=== PATIENT | female | born 1975 | race Caucasian/White ===

== ENCOUNTER 2017-03-03 01:35 | Emergency (ER) | payer BC ==
[2017-03-03] MEDS ORDERED: Diltiazem 25 MG/5 ML SDV IVPUSH ONE (01:55)
[2017-03-03] MEDS ORDERED: Diltiazem 100 MG in Sodium Chloride 0.9% 100 ML IV SCH (02:15)
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
[2017-03-03] MEDS ORDERED: Propofol 200 MG/20 ML SDV IVPUSH ONE (02:53)
[2017-03-03 04:38] VITALS: BP 126/81
== END 2017-03-03 03:45 | disposition home or self-care (01) ==
LOC: JP.ED 01:35
DX: I48.91 Unspecified atrial fibrillation (principal); F31.9 Bipolar disorder, unspecified; Z98.51 Tubal ligation status; Z98.890 Other specified postprocedural states; Z79.899 Other long term (current) drug therapy; Z88.2 Allergy status to sulfonamides; Z88.8 Allergy status to other drugs, medicaments and biological substances
CPT/HCPCS: 36415; 80048; 84484; 85025; 93005; 96374; 96375; 99285; J2704; J7030; J3490

== ENCOUNTER 2017-09-03 21:21 | Emergency (ER) | payer BC | END 2017-09-03 21:55 | disposition left against medical advice (07) | LOC: JP.ED 21:21 | DX: Z53.21 Procedure and treatment not carried out due to patient leaving prior to being seen by health care provider (principal) ==

== ENCOUNTER 2018-02-12 10:40 | Inpatient (IN) | payer BC ==
[2018-02-12] MEDS ORDERED: HYDROmorphone/Normal Saline 15 MG/30 ML PCA IV PRN ×2 (12:00→15:32)
[2018-02-12] MEDS ORDERED: Naloxone 0.4 MG/ML SDV IV PRN (12:07)
[2018-02-12] MEDS: Dextrose 5%-0.9% NaCl 1,000 ML IV SCH ×2 (12:08→22:30)
[2018-02-12] MEDS ORDERED: cefTRIAXone 2 GM in Sodium Chloride 0.9% 50 ML IV ONE (12:30)
[2018-02-12] MEDS ORDERED: Levofloxacin/Dextrose 5%-Water 750 MG in Premix Bag 1 BAG IV ONE (13:00)
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
[2018-02-12] MEDS: Acetaminophen 325 MG Tab PO PRN ×2 (15:36→22:26)
[2018-02-12] MEDS: Ondansetron 4 MG Tab.DIS PO PRN ×2 (16:18→20:51)
[2018-02-12] MEDS ORDERED: Cyclobenzaprine 10 MG Tab PO PRN (23:35)
[2018-02-12] MEDS ORDERED: QUEtiapine 25 MG Tab ONE (23:59)
[2018-02-13] MEDS: QUEtiapine 25 MG Tab PO SCH ×2 (00:01→21:03)
[2018-02-13] MEDS: Acetaminophen 325 MG Tab PO PRN ×3 (04:47→19:15)
[2018-02-13] MEDS: Ondansetron 4 MG Tab.DIS PO PRN ×3 (05:36→18:34)
[2018-02-13] MEDS: Dextrose 5%-0.9% NaCl 1,000 ML IV SCH (06:29)
[2018-02-13] MEDS: cefTRIAXone 2 GM in Sodium Chloride 0.9% 50 ML IV SCH (13:18)
--- NOTE | 2018-02-13 14:27 | PCM.PN ---
- General Info Date of Service: 02/13/18 Functional Status: Reports: Pain Controlled - Review of Systems General: Reports: Weakness, Fatigue HEENT: Reports: No Symptoms Pulmonary: Reports: No Symptoms Cardiovascular: Reports: No Symptoms Gastrointestinal: Reports: No Symptoms Genitourinary: Reports: No Symptoms Musculoskeletal: Reports: No Symptoms Skin: Reports: No Symptoms Neurological: Reports: No Symptoms Psychiatric: Reports: No Symptoms - Patient Data Vitals - Most Recent: Last Vital Signs Temp 96.5 F 02/13/18 11:09 Pulse 78 02/13/18 11:09 Resp 16 02/13/18 11:09 BP 130/86 02/13/18 11:09 Pulse Ox 99 02/13/18 11:09 Weight - Most Recent: 102 lb I&O - Last 24 Hours: Intake & Output 02/12/18 02/13/18 02/13/18 22:59 06:59 14:59 Intake Total 664 2300 Balance 664 2300 Zain Results Last 24 Hours: Microbiology 02/12/18 12:54 Urine Culture - Preliminary Urine, Clean Catch NO GROWTH AFTER 1 DAY Med Orders - Current: Current Medications Acetaminophen (Tylenol) 325 - 650 mg PO Q4H PRN PRN Reason: Pain Last Admin: 02/13/18 09:53 Dose: 650 mg Cyclobenzaprine HCl (Flexeril) 10 mg PO BEDTIME PRN PRN Reason: pain Hydromorphone HCl (Dilaudid Maintenance Carpenter 15 Mg In Ns 30 Ml) 0 mg IV ASDIRECTED PRN; Protocol PRN Reason: Pain Dextrose/Sodium Chloride (Dextrose 5%-Normal Saline) 1,000 mls @ 125 mls/hr IV ASDIRECTED AMALIA Last Admin: 02/13/18 06:29 Dose: 125 mls/hr Ceftriaxone Sodium 2 gm/ (Sodium Chloride) 50 mls @ 100 mls/hr IV Q24H [facility] Last Admin: 02/13/18 13:18 Dose: 100 mls/hr Levofloxacin/Dextrose 750 mg/ (Premix) 150 mls @ 100 mls/hr IV Q24H [facility] Naloxone HCl (Narcan) 0.1 mg IV ASDIRECTED PRN PRN Reason: decreased respiratory rate Ondansetron HCl (Zofran Odt) 4 mg PO Q4H PRN PRN Reason: Nausea/Vomiting Last Admin: 02/13/18 14:07 Dose: 4 mg Quetiapine Fumarate (Seroquel) 37.5 mg PO BEDTIME AMALIA Last Admin: 02/13/18 00:01 Dose: 37.5 mg Discontinued Medications Hydromorphone HCl (Dilaudid Maintenance Carpenter 15 Mg In Ns 30 Ml) 0 mg IV ASDIRECTED PRN; Protocol PRN Reason: Pain Last Admin: 02/12/18 12:12 Dose: 15 mg Ceftriaxone Sodium 2 gm/ (Sodium Chloride) 50 mls @ 100 mls/hr IV ONETIME ONE Stop: 02/12/18 12:59 Last Admin: 02/12/18 12:47 Dose: 100 mls/hr Levofloxacin/Dextrose 750 mg/ (Premix) 150 mls @ 100 mls/hr IV ONETIME ONE Stop: 02/12/18 14:29 Last Admin: 02/12/18 13:41 Dose: 100 mls/hr Quetiapine Fumarate (Seroquel) Confirm Administered Dose 50 mg .ROUTE .STK-MED ONE Stop: 02/13/18 00:00 Last Admin: 02/13/18 00:02 Dose: Not Given - Exam General: Alert, Oriented Neck: Supple Lungs: Clear to Auscultation, Normal Respiratory Effort Cardiovascular: Regular Rate, Regular Rhythm GI/Abdominal Exam: Normal Bowel Sounds, Tender, Other (Pain over the eft kidney) Back Exam: Normal Inspection, Full Range of Motion Peripheral Pulses: 1+: Radial (L), Radial (R) Skin: Warm, Dry, Intact Neurological: No New Focal Deficit Psy/Mental Status: Alert, Normal Affect, Normal Mood - Problem List Review Problem List Initiated/Reviewed/Updated: Yes - My Orders Last 24 Hours: My Active Orders 02/12/18 15:04 Acetaminophen [Tylenol] 325 - 650 mg PO Q4H PRN 02/12/18 15:28 Communication Order [RC] QSHIFT 02/12/18 15:32 HYDROmorphone/Normal Saline [Dilaudid AGRONOMY ADVISOR 15 MG in NS 30 ML] 0 mg IV ASDIRECTED PRN 02/12/18 15:44 Ondansetron [Zofran ODT] 4 mg PO Q4H PRN 02/12/18 23:35 Cyclobenzaprine [Flexeril] 10 mg PO BEDTIME PRN 03/29/18 Dinner Regular Diet [DIET] 02/13/18 08:01 SCD [Sequential Compression Device] [OM.PC] Routine 02/13/18 13:00 cefTRIAXone [Rocephin] 2 gm Sodium Chloride 0.9% [Normal Saline] 50 ml IV Q24H 02/13/18 14:00 Levofloxacin/Dextrose 5%-Water [Levaquin in D5W 750 MG/150 ML] 750 mg Premix Bag 1 bag IV Q24H 02/13/18 21:00 QUEtiapine [SEROquel] 37.5 mg PO BEDTIME - Plan Plan:: Assessment/Plan: #1. Acute Pylonephritis: Have started her on Rocephin and Levaquin. Will continue pain meds to control the pain. Culture report pending. #2. Migraine headaches.
[2018-02-13] MEDS: Levofloxacin/Dextrose 5%-Water 750 MG in Premix Bag 1 BAG IV SCH (14:55)
[2018-02-13] MEDS: oxyCODONE 5 MG Tab PO PRN ×2 (18:34→22:27)
[2018-02-14] MEDS: oxyCODONE 5 MG Tab PO PRN ×3 (02:49→13:33)
[2018-02-14] MEDS: Ondansetron 4 MG Tab.DIS PO PRN (13:33)
[2018-02-14] MEDS: cefTRIAXone 2 GM in Sodium Chloride 0.9% 50 ML IV SCH (13:57)
[2018-02-14 14:12] VITALS: BP 155/107
--- NOTE | 2018-02-14 14:28 | PCM.PN ---
- General Info Date of Service: 02/14/18 Subjective Update: She is feeling better. Her pain has improved but still needed meds to control the pain. Functional Status: Reports: Pain Controlled - Review of Systems General: Reports: Weakness HEENT: Reports: No Symptoms Pulmonary: Reports: No Symptoms Cardiovascular: Reports: No Symptoms Gastrointestinal: Reports: No Symptoms Genitourinary: Reports: Flank Pain, Other (Pain over the lift kidney) Musculoskeletal: Reports: No Symptoms Skin: Reports: No Symptoms Neurological: Reports: No Symptoms Psychiatric: Reports: No Symptoms - Patient Data Vitals - Most Recent: Last Vital Signs Temp 98.1 F 02/14/18 14:07 Pulse 84 02/14/18 14:07 Resp 16 02/14/18 14:07 BP 155/107 H 02/14/18 14:07 Pulse Ox 100 02/14/18 14:07 Weight - Most Recent: 102 lb I&O - Last 24 Hours: Intake & Output 02/13/18 02/14/18 02/14/18 22:59 06:59 14:59 Intake Total 1879 740 970 Balance 1879 740 970 Zain Results Last 24 Hours: Microbiology 02/12/18 12:54 Urine Culture - Final Urine, Clean Catch MIXED KAILEY DAY 2 Med Orders - Current: Current Medications Acetaminophen (Tylenol) 325 - 650 mg PO Q4H PRN PRN Reason: Pain Last Admin: 02/13/18 19:15 Dose: 650 mg Cyclobenzaprine HCl (Flexeril) 10 mg PO BEDTIME PRN PRN Reason: pain Ceftriaxone Sodium 2 gm/ (Sodium Chloride) 50 mls @ 100 mls/hr IV Q24H [facility] Last Admin: 02/14/18 13:57 Dose: 100 mls/hr Levofloxacin/Dextrose 750 mg/ (Premix) 150 mls @ 100 mls/hr IV Q24H [facility] Last Admin: 02/13/18 14:55 Dose: 100 mls/hr Ondansetron HCl (Zofran Odt) 4 mg PO Q4H PRN PRN Reason: Nausea/Vomiting Last Admin: 02/14/18 13:33 Dose: 4 mg Oxycodone HCl (Oxycodone) 5 mg PO Q4H PRN PRN Reason: Abdominal Pain Last Admin: 02/14/18 13:33 Dose: 5 mg Quetiapine Fumarate (Seroquel) 37.5 mg PO BEDTIME [facility] Last Admin: 02/13/18 21:03 Dose: 37.5 mg Discontinued Medications Hydromorphone HCl (Dilaudid Public Health Sanitarian Technician 15 Mg In Ns 30 Ml) 0 mg IV ASDIRECTED PRN; Protocol PRN Reason: Pain Last Admin: 02/12/18 12:12 Dose: 15 mg Hydromorphone HCl (Dilaudid Public Health Sanitarian Technician 15 Mg In Ns 30 Ml) 0 mg IV ASDIRECTED PRN; Protocol PRN Reason: Pain Ceftriaxone Sodium 2 gm/ (Sodium Chloride) 50 mls @ 100 mls/hr IV ONETIME ONE Stop: 02/12/18 12:59 Last Admin: 02/12/18 12:47 Dose: 100 mls/hr Dextrose/Sodium Chloride (Dextrose 5%-Normal Saline) 1,000 mls @ 125 mls/hr IV ASDIRECTED [facility] Last Admin: 02/13/18 06:29 Dose: 125 mls/hr Levofloxacin/Dextrose 750 mg/ (Premix) 150 mls @ 100 mls/hr IV ONETIME ONE Stop: 02/12/18 14:29 Last Admin: 02/12/18 13:41 Dose: 100 mls/hr Naloxone HCl (Narcan) 0.1 mg IV ASDIRECTED PRN PRN Reason: decreased respiratory rate Quetiapine Fumarate (Seroquel) Confirm Administered Dose 50 mg .ROUTE .STK-MED ONE Stop: 02/13/18 00:00 Last Admin: 02/13/18 00:02 Dose: Not Given - Exam General: Alert, Oriented HEENT: Pupils Equal, Pupils Reactive, EOMI, Mucous Membr. Moist/[place] Neck: Supple Lungs: Clear to Auscultation, Normal Respiratory Effort Cardiovascular: Regular Rate, Regular Rhythm GI/Abdominal Exam: Tender, Other (Pain to palpation over the left kidney and pain to CVA percussion left kidney area.) Extremities: Normal Inspection, Normal Range of Motion, Non-Tender, No Pedal Edema, Normal Capillary Refill Neurological: No New Focal Deficit Psy/Mental Status: Alert, Normal Affect, Normal Mood - Problem List Review Problem List Initiated/Reviewed/Updated: Yes - My Orders Last 24 Hours: My Active Orders 02/13/18 14:00 Levofloxacin/Dextrose 5%-Water [Levaquin in D5W 750 MG/150 ML] 750 mg Premix Bag 1 bag IV Q24H 02/13/18 17:42 oxyCODONE 5 mg PO Q4H PRN Convert IV to Saline Lock [OM.PC] Routine 02/13/18 21:00 QUEtiapine [SEROquel] 37.5 mg PO BEDTIME 02/14/18 14:28 Ready for Discharge [RC] PER UNIT ROUTINE - Plan Plan:: Assessment/Plan: #1. Acute Pylonephritis: Have started her on Rocephin and Levaquin. Will continue pain meds by mouth and discharge home on oxycodone PO. Culture report showed mixed kailey. Will send home of Cefadroxil and Levaquin. #2. Migraine headaches. Condition stable.
--- NOTE | 2018-02-14 14:29 | PCM.DCSUM1 ---
Discharge Summary - Hospital Course Brief History: She has a history of 2 episodes of kidney stones. The last one was on the left and had lithotripsy followed by stone removal on the left kidney. Following this she had bleeding and has had pain ever since recently increased pain in the left side of the abd. She had a CT urogram which showed evidence of nephritis. She came to the office having sever pain. She was admitted because of severe pain and to treat the nephritis of the left kidney. Her pain level was 8-9/10 sharp and dull and constant. - Discharge Data Discharge Date: 02/14/18 Discharge Disposition: Home, Self-Care 01 Condition: Good - Patient Summary/Data Hospital Course: She was given Rocephin and Levaquin and improved. Pain was controlled with Narcotics. First IV then PO Oxycondone 5 mg - Discharge Plan Home Medications: Home Meds Ondansetron [Zofran ODT] 4 mg PO Q6H PRN 07/05/14 [History] QUEtiapine [SEROquel] 75 mg PO BEDTIME 07/05/14 [History] Cyclobenzaprine [Flexeril] 1 tab PO BEDTIME PRN 05/20/16 [History] Ibuprofen 800 mg PO Q6H PRN 02/12/18 [History] Ketorolac Tromethamine 10 mg PO Q4HR PRN 02/12/18 [History] Ondansetron [Zofran ODT] 4 mg PO Q4H PRN tab.dis 02/14/18 [Rx] oxyCODONE 5 mg PO Q4H PRN tablet 02/14/18 [Rx] Patient Handouts: Levofloxacin injection, Ceftriaxone injection - Discharge Summary/Plan Comment Discharge Summary/Plan Comment: Assessment/Plan: #1. Acute Pylonephritis: Have started her on Rocephin and Levaquin. Will continue pain meds by mouth and discharge home on oxycodone PO. Culture report showed mixed jeniffer. Will send home of Cefadroxil and Levaquin. #2. Migraine headaches. Condition stable. Sent home on Oxycondone 5 mg QID prn #24, Cefadroxil 500 mg bid #42 and Levaquin 500 mg q day for 3 weeks - General Info Date of Service: 02/14/18 Functional Status: Reports: Pain Controlled - Review of Systems General: Reports: Weakness HEENT: Reports: No Symptoms Pulmonary: Reports: No Symptoms Cardiovascular: Reports: No Symptoms Gastrointestinal: Reports: No Symptoms Genitourinary: Reports: Frequency, Urgency Musculoskeletal: Reports: No Symptoms Skin: Reports: No Symptoms Psychiatric: Reports: No Symptoms - Patient Data Vitals - Most Recent: Last Vital Signs Temp 98.1 F 02/14/18 14:07 Pulse 84 02/14/18 14:07 Resp 16 02/14/18 14:07 BP 155/107 H 02/14/18 14:07 Pulse Ox 100 02/14/18 14:07 Weight - Most Recent: 102 lb I&O - Last 24 hours: Intake & Output 02/13/18 02/14/18 02/14/18 22:59 06:59 14:59 Intake Total 1879 740 970 Balance 1879 740 970 JOSE Results - Last 24 hrs: Microbiology 02/12/18 12:54 Urine Culture - Final Urine, Clean Catch MIXED JENIFFER DAY 2 Med Orders - Current: Current Medications Acetaminophen (Tylenol) 325 - 650 mg PO Q4H PRN PRN Reason: Pain Last Admin: 02/13/18 19:15 Dose: 650 mg Cyclobenzaprine HCl (Flexeril) 10 mg PO BEDTIME PRN PRN Reason: pain Ceftriaxone Sodium 2 gm/ (Sodium Chloride) 50 mls @ 100 mls/hr IV Q24H [facility] Last Admin: 02/14/18 13:57 Dose: 100 mls/hr Levofloxacin/Dextrose 750 mg/ (Premix) 150 mls @ 100 mls/hr IV Q24H [facility] Last Admin: 02/13/18 14:55 Dose: 100 mls/hr Ondansetron HCl (Zofran Odt) 4 mg PO Q4H PRN PRN Reason: Nausea/Vomiting Last Admin: 02/14/18 13:33 Dose: 4 mg Oxycodone HCl (Oxycodone) 5 mg PO Q4H PRN PRN Reason: Abdominal Pain Last Admin: 02/14/18 13:33 Dose: 5 mg Quetiapine Fumarate (Seroquel) 37.5 mg PO BEDTIME AMALIA Last Admin: 02/13/18 21:03 Dose: 37.5 mg Discontinued Medications Hydromorphone HCl (Dilaudid History Tutor 15 Mg In Ns 30 Ml) 0 mg IV ASDIRECTED PRN; Protocol PRN Reason: Pain Last Admin: 02/12/18 12:12 Dose: 15 mg Hydromorphone HCl (Dilaudid History Tutor 15 Mg In Ns 30 Ml) 0 mg IV ASDIRECTED PRN; Protocol PRN Reason: Pain Ceftriaxone Sodium 2 gm/ (Sodium Chloride) 50 mls @ 100 mls/hr IV ONETIME ONE Stop: 02/12/18 12:59 Last Admin: 02/12/18 12:47 Dose: 100 mls/hr Dextrose/Sodium Chloride (Dextrose 5%-Normal Saline) 1,000 mls @ 125 mls/hr IV ASDIRECTED AMALIA Last Admin: 02/13/18 06:29 Dose: 125 mls/hr Levofloxacin/Dextrose 750 mg/ (Premix) 150 mls @ 100 mls/hr IV ONETIME ONE Stop: 02/12/18 14:29 Last Admin: 02/12/18 13:41 Dose: 100 mls/hr Naloxone HCl (Narcan) 0.1 mg IV ASDIRECTED PRN PRN Reason: decreased respiratory rate Quetiapine Fumarate (Seroquel) Confirm Administered Dose 50 mg .ROUTE .STK-MED ONE Stop: 02/13/18 00:00 Last Admin: 02/13/18 00:02 Dose: Not Given - Exam General: Reports: Alert, Oriented HEENT: Reports: Pupils Equal, Pupils Reactive, EOMI, Mucous Membr. Moist/[place] Neck: Reports: Supple Lungs: Reports: Clear to Auscultation, Normal Respiratory Effort Cardiovascular: Reports: Regular Rate, Regular Rhythm GI/Abdominal Exam: Tender, Other (Pain to palpation over the left kidney area.) Back Exam: Reports: Full Range of Motion Extremities: Non-Tender
[2018-02-14] MEDS: Levofloxacin/Dextrose 5%-Water 750 MG in Premix Bag 1 BAG IV SCH (14:39)
== END 2018-02-14 16:43 | disposition home or self-care (01) | DRG 463 ==
LOC: JP.MS 10:40
PROVIDERS: ADMIT Internal Medicine; ATTEND Internal Medicine
DX: N10 Acute pyelonephritis (principal); G43.909 Migraine, unspecified, not intractable, without status migrainosus; Z88.2 Allergy status to sulfonamides; Z88.8 Allergy status to other drugs, medicaments and biological substances; Z79.899 Other long term (current) drug therapy; Z87.891 Personal history of nicotine dependence
CPT/HCPCS: 36415; 80053; 85025; 87086; A9270-GY; J0696; J1170; J1956; J7050

== ENCOUNTER 2018-02-27 14:44 | Emergency (ER) | payer BC ==
[2018-02-27] MEDS ORDERED: HYDROmorphone 0.5 MG/0.5 ML Syringe IVPUSH ONE (15:35)
[2018-02-27] MEDS ORDERED: Ondansetron 4 MG/2 ML SDV IVPUSH ONE (15:35)
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
[2018-02-27] MEDS ORDERED: Sodium Chloride 0.9% 1,000 ML IV SCH ×2 (15:45→18:15)
[2018-02-27] MEDS ORDERED: HYDROmorphone 1 MG/ML Syringe IVPUSH ONE (16:56)
[2018-02-27] MEDS ORDERED: LORazepam 2 MG/ML SDV IVPUSH ONE (17:01)
[2018-02-27] MEDS ORDERED: Nitroglycerin 0.4 MG Tab.SL SL ONE (17:02)
[2018-02-27] MEDS ORDERED: Iopamidol 612 MG/ML 100 ML Bottle IV SCH (18:30)
[2018-02-27 19:32] VITALS: BP 163/97
== END 2018-02-27 19:42 | disposition home or self-care (01) ==
LOC: JP.ED 14:44
DX: R10.9 Unspecified abdominal pain (principal); Z88.5 Allergy status to narcotic agent; Z88.2 Allergy status to sulfonamides; Z87.891 Personal history of nicotine dependence
CPT/HCPCS: 36415; 74177; 80053; 81001; 85025; 86140; 87086; 96361; 96374; 96375; 96376; 99284; J1170; J2405; J7030; J7040; Q9967

== ENCOUNTER 2018-03-02 08:47 | Emergency (ER) | payer BC ==
[2018-03-02 08:58] VITALS: BP 161/101
[2018-03-02] MEDS ORDERED: Sodium Chloride 0.9% 10 ML Syringe FLUSH PRN (09:25)
[2018-03-02] MEDS ORDERED: Ondansetron 4 MG/2 ML SDV IVPUSH ONE ×3 (09:26→11:06)
[2018-03-02] MEDS ORDERED: Ketorolac 30 MG/ML SDV IVPUSH ONE (09:26)
[2018-03-02] MEDS ORDERED: Sodium Chloride 0.9% 1,000 ML IV SCH (09:30)
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
[2018-03-02] MEDS ORDERED: HYDROmorphone 0.5 MG/0.5 ML Syringe IVPUSH ONE (10:05)
[2018-03-02] MEDS ORDERED: HYDROmorphone 1 MG/ML Syringe IVPUSH ONE (10:42)
== END 2018-03-02 11:20 | disposition home or self-care (01) ==
LOC: JP.ED 08:47
DX: R10.9 Unspecified abdominal pain (principal); Z88.2 Allergy status to sulfonamides; Z88.5 Allergy status to narcotic agent; Z87.891 Personal history of nicotine dependence
CPT/HCPCS: 80305; 81001; 96361; 96374; 96375; 96376; 99284; J1170; J1885; J2405; J7040; J7050

== ENCOUNTER 2018-03-18 12:58 | Emergency (ER) | payer BC ==
[2018-03-18] MEDS ORDERED: HYDROmorphone 1 MG/ML Syringe IVPUSH ONE (15:50)
[2018-03-18] MEDS ORDERED: Ondansetron 4 MG/2 ML SDV IVPUSH ONE (15:52)
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
[2018-03-18] MEDS ORDERED: Sodium Chloride 0.9% 1,000 ML IV SCH (16:00)
[2018-03-18 16:47] VITALS: BP 148/88
[2018-03-18] MEDS ORDERED: HYDROmorphone 0.5 MG/0.5 ML Syringe IVPUSH ONE (16:50)
--- NOTE | 2018-03-19 09:25 | CR ---
Abdomen Series w Chest 1V CLINICAL HISTORY: Severe left lower quadrant pain FINDINGS: The lungs are clear. No free air is identified. There are air-filled loops of small bowel w ithin a nonacute pattern. The there is some gas and feces in the colon. No definite urinary calcifica tions are seen. Patient has an S shaped scoliosis with the thoracic convexity to the left IMPRESSION: Nonacute intestinal gas pattern Scoliosis
== END 2018-03-18 19:21 | disposition home or self-care (01) ==
LOC: JP.ED 12:58
DX: K59.00 Constipation, unspecified (principal); I48.91 Unspecified atrial fibrillation; J45.909 Unspecified asthma, uncomplicated; Z88.2 Allergy status to sulfonamides; Z88.8 Allergy status to other drugs, medicaments and biological substances; Z79.899 Other long term (current) drug therapy; Z87.442 Personal history of urinary calculi; Z87.440 Personal history of urinary (tract) infections
CPT/HCPCS: 36415; 74022; 76830; 76857; 80053; 81001; 85025; 96361; 96374; 96375; 96376; 99285; J1170; J2405; J7040

== ENCOUNTER 2018-04-08 15:14 | Emergency (ER) | payer BC ==
[2018-04-08] MEDS ORDERED: Ondansetron 4 MG Tab.DIS PO ONE (17:08)
[2018-04-08] MEDS ORDERED: fentaNYL 100 MCG/2 ML SDV IM ONE (17:08)
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
[2018-04-08] MEDS ORDERED: HYDROmorphone 1 MG/ML Syringe IVPUSH ONE (17:16)
[2018-04-08] MEDS ORDERED: HYDROmorphone 1 MG/ML Syringe IM ONE (17:18)
[2018-04-08 17:43] VITALS: BP 154/104
[2018-04-08] MEDS ORDERED: Prochlorperazine 10 MG/2 ML SDV IVPUSH ONE (18:28)
== END 2018-04-08 18:41 | disposition home or self-care (01) ==
LOC: JP.ED 15:14
DX: R10.84 Generalized abdominal pain (principal); Z88.8 Allergy status to other drugs, medicaments and biological substances; Z88.5 Allergy status to narcotic agent; Z88.2 Allergy status to sulfonamides; Z88.0 Allergy status to penicillin
CPT/HCPCS: 36415; 80053; 81001; 81025; 83605; 83690; 85025; 96372; 96374; 99284; A9270; J1170

== ENCOUNTER 2018-04-19 18:41 | Emergency (ER) | payer BC ==
[2018-04-19] MEDS ORDERED: Lactated Ringers 1,000 ML IV ONE (19:12)
[2018-04-19] MEDS ORDERED: Ketorolac 30 MG/ML SDV IVPUSH ONE (19:13)
[2018-04-19] MEDS ORDERED: diphenhydrAMINE 50 MG/ML SDV IVPUSH ONE (19:13)
[2018-04-19] MEDS ORDERED: Prochlorperazine 10 MG/2 ML SDV IVPUSH ONE (19:13)
[2018-04-19 19:14] VITALS: BP 149/101
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
== END 2018-04-19 20:22 | disposition home or self-care (01) ==
LOC: JP.ED 18:41
DX: G43.909 Migraine, unspecified, not intractable, without status migrainosus (principal); I48.91 Unspecified atrial fibrillation; J45.909 Unspecified asthma, uncomplicated; F41.9 Anxiety disorder, unspecified; M19.90 Unspecified osteoarthritis, unspecified site; Z79.899 Other long term (current) drug therapy; Z88.2 Allergy status to sulfonamides; Z88.5 Allergy status to narcotic agent
CPT/HCPCS: 96361; 96374; 96375; 99284; J0780; J1200; J1885; J7120

== ENCOUNTER 2018-04-22 20:00 | Emergency (ER) | payer BC ==
[2018-04-22 21:06] VITALS: BP 131/95
[2018-04-22] MEDS ORDERED: HYDROmorphone 1 MG/ML Syringe IM ONE (21:28)
[2018-04-22] MEDS ORDERED: Ondansetron 4 MG Tab.DIS PO ONE (21:28)
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
== END 2018-04-22 21:56 | disposition home or self-care (01) ==
LOC: JP.ED 20:00
DX: G89.18 Other acute postprocedural pain (principal); R10.9 Unspecified abdominal pain; Z88.8 Allergy status to other drugs, medicaments and biological substances; Z88.2 Allergy status to sulfonamides; Z79.899 Other long term (current) drug therapy
CPT/HCPCS: 81001; 96372; 99284; A9270; J1170

== ENCOUNTER 2018-04-27 17:57 | Emergency (ER) | payer BC ==
[2018-04-27] MEDS ORDERED: Ondansetron 4 MG Tab.DIS PO ONE (19:55)
[2018-04-27] MEDS ORDERED: Acetaminophen/oxyCODONE 325-5 MG Tab PO ONE (19:56)
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
[2018-04-27 21:17] VITALS: BP 145/102
== END 2018-04-27 21:18 | disposition home or self-care (01) ==
LOC: JP.ED 17:57
DX: G89.18 Other acute postprocedural pain (principal); R10.30 Lower abdominal pain, unspecified; J45.909 Unspecified asthma, uncomplicated; M19.90 Unspecified osteoarthritis, unspecified site; F41.9 Anxiety disorder, unspecified; Z79.899 Other long term (current) drug therapy; I48.91 Unspecified atrial fibrillation; Z88.2 Allergy status to sulfonamides; Z88.5 Allergy status to narcotic agent; Z88.6 Allergy status to analgesic agent; Z98.890 Other specified postprocedural states
CPT/HCPCS: 36415; 81001; 85027; 86140; 87086; 99284; A9270

== ENCOUNTER 2018-05-02 14:00 | Emergency (ER) | payer BC ==
[2018-05-02 15:08] VITALS: BP 149/99
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
[2018-05-02] MEDS ORDERED: Acetaminophen 500 MG Tab PO ONE (15:38)
== END 2018-05-02 16:16 | disposition left against medical advice (07) ==
LOC: JP.ED 14:00
DX: R10.30 Lower abdominal pain, unspecified (principal); I48.91 Unspecified atrial fibrillation; Z88.2 Allergy status to sulfonamides; Z88.8 Allergy status to other drugs, medicaments and biological substances; Z88.5 Allergy status to narcotic agent; Z79.899 Other long term (current) drug therapy; Z87.442 Personal history of urinary calculi
CPT/HCPCS: 36415; 80048; 80305; 81001; 85025; 99284; A9270

== ENCOUNTER 2018-06-01 16:26 | Observation (INO) | payer BC ==
[2018-06-01] MEDS ORDERED: Sodium Chloride 0.9% 10 ML Syringe FLUSH PRN (17:41)
[2018-06-01] MEDS ORDERED: Temazepam 15 MG Cap PO PRN (17:41)
[2018-06-01] MEDS ORDERED: Ondansetron 4 MG Tab.DIS PO PRN (17:41)
[2018-06-01] MEDS ORDERED: Ketorolac 10 MG Tab PO PRN (17:49)
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
[2018-06-01] MEDS ORDERED: Meperidine 300 MG/30 ML PCA Vial IV PRN (17:56)
[2018-06-01] MEDS: Ondansetron 4 MG Tab.DIS PO PRN (18:14)
[2018-06-01] MEDS: Lactated Ringers 1,000 ML IV SCH (18:14)
[2018-06-01] MEDS ORDERED: Iohexol 300 MG/ML 30 ML Bottle PO ONE (18:14)
[2018-06-01] MEDS ORDERED: HYDROmorphone/Normal Saline 15 MG/30 ML PCA IV SCH (18:15)
[2018-06-01] MEDS ORDERED: Iopamidol 612 MG/ML 100 ML Bottle IV SCH (19:00)
[2018-06-01] MEDS ORDERED: Sodium Chloride 0.9% 80 ML IV SCH (19:00)
[2018-06-01] MEDS ORDERED: QUEtiapine 25 MG Tab PO SCH (21:00)
[2018-06-01] MEDS ORDERED: Estradiol 0.5 MG Tab PO SCH (21:00)
[2018-06-01] MEDS: Ibuprofen 800 MG Tab PO PRN (21:03)
[2018-06-01] MEDS ORDERED: cloNIDine 0.1 MG Tab PO PRN (21:08)
[2018-06-02] MEDS: Ondansetron 4 MG Tab.DIS PO PRN ×2 (01:36→07:55)
[2018-06-02] MEDS: Lactated Ringers 1,000 ML IV SCH (02:35)
[2018-06-02] MEDS: Ibuprofen 800 MG Tab PO PRN (05:18)
[2018-06-02 07:33] VITALS: BP 106/79
[2018-06-02] MEDS ORDERED: Estradiol 0.5 MG Tab PO SCH (09:00)
--- NOTE | 2018-06-02 10:01 | PCM.PN ---
- General Info Date of Service: 06/02/18 Functional Status: Reports: Pain Controlled - Review of Systems General: Reports: Weakness HEENT: Reports: No Symptoms Pulmonary: Reports: No Symptoms Cardiovascular: Reports: No Symptoms Gastrointestinal: Reports: Abdominal Pain Genitourinary: Reports: No Symptoms Musculoskeletal: Reports: No Symptoms Skin: Reports: No Symptoms Neurological: Reports: No Symptoms Psychiatric: Reports: No Symptoms - Patient Data Vitals - Most Recent: Last Vital Signs Temp 97.3 F 06/02/18 07:31 Pulse 61 06/02/18 07:31 Resp 16 06/02/18 07:31 BP 106/79 06/02/18 07:31 Pulse Ox 96 06/02/18 07:44 Weight - Most Recent: 102 lb I&O - Last 24 Hours: Intake & Output 06/01/18 06/02/18 06/02/18 22:59 06:59 14:59 Intake Total 450 1277 120 Output Total 900 200 200 Balance -450 1077 -80 Lab Results Last 24 Hours: Laboratory Results - last 24 hr 06/01/18 06/01/18 06/01/18 Range/Units 17:41 17:41 17:41 WBC (4.5-11.0) K/uL RBC (3.30-5.50) M/uL Hgb (12.0-15.0) g/dL Hct (36.0-48.0) % MCV (80-98) fL MCH (27-31) pg MCHC (32-36) % Plt Count (150-400) K/uL Neut % (Auto) (36-66) % Lymph % (Auto) (24-44) % [place] % (Auto) (2-6) % Eos % (Auto) (2-4) % Baso % (Auto) (0-1) % Sodium 140 (140-148) mmol/L Potassium 5.8 H (3.6-5.2) mmol/L Chloride 108 (100-108) mmol/L Carbon Dioxide 19 L (21-32) mmol/L Anion Gap 18.8 H (5.0-14.0) mmol/L BUN 18 (7-18) mg/dL Creatinine 0.7 (0.6-1.0) mg/dL Est Cr Clr Drug Dosing 75.69 mL/min Estimated GFR (MDRD) > 60 (>60) Glucose 88 (74-106) mg/dL Calcium 9.9 (8.5-10.1) mg/dL Total Bilirubin 0.6 (0.2-1.0) mg/dL AST 28 (15-37) U/L ALT 18 (12-78) U/L Alkaline Phosphatase 59 (46-116) U/L Total Protein 6.9 (6.4-8.2) g/dL Albumin 3.9 (3.4-5.0) g/dL Globulin 3.0 (2.3-3.5) g/dL Albumin/Globulin Ratio 1.3 (1.2-2.2) Urine Color Yellow Urine Appearance Clear Urine pH 6.0 (4.5-8.0) Ur Specific [place] 1.015 (1.008-1.030) Urine Protein Negative (NEGATIVE) mg/dL Urine Glucose (UA) Normal (NEGATIVE) mg/dL Urine Ketones Negative (NEGATIVE) mg/dL Urine Occult Blood Moderate (NEGATIVE) Urine Nitrite Negative (NEGATIVE) Urine Bilirubin Negative (NEGATIVE) Urine Urobilinogen Normal (NORMAL) mg/dL Ur Leukocyte Esterase Negative (NEGATIVE) Urine RBC 0-5 (0-5) Urine WBC 0-5 (0-5) Ur Epithelial Cells Rare Amorphous Sediment Not seen Urine Bacteria Few Urine Mucus Not seen Urine Opiates Screen Negative (NEGATIVE) Ur Oxycodone Screen Presumptive positive H (NEGATIVE) Urine Methadone Screen Negative (NEGATIVE) Ur Propoxyphene Screen Negative (NEGATIVE) Ur Barbiturates Screen Negative (NEGATIVE) Ur Tricyclics Screen Negative (NEGATIVE) Ur Phencyclidine Scrn Negative (NEGATIVE) Ur Amphetamine Screen Negative (NEGATIVE) U Methamphetamines Scrn Negative (NEGATIVE) Urine MDMA Screen Negative (NEGATIVE) U Benzodiazepines Scrn Negative (NEGATIVE) U Cocaine Metab Screen Negative (NEGATIVE) U Marijuana (THC) Screen Negative (NEGATIVE) 06/01/18 06/02/18 Range/Units 21:16 04:50 WBC 7.4 (4.5-11.0) K/uL RBC 3.97 (3.30-5.50) M/uL Hgb 11.8 L (12.0-15.0) g/dL Hct 34.4 L (36.0-48.0) % MCV 87 (80-98) fL MCH 30 (27-31) pg MCHC 34 (32-36) % Plt Count 294 (150-400) K/uL Neut % (Auto) 57 (36-66) % Lymph % (Auto) 35 (24-44) % [place] % (Auto) 6 (2-6) % Eos % (Auto) 1 L (2-4) % Baso % (Auto) 0 (0-1) % Sodium 140 (140-148) mmol/L Potassium 3.4 L (3.6-5.2) mmol/L Chloride 107 (100-108) mmol/L Carbon Dioxide 24 (21-32) mmol/L Anion Gap 12.4 (5.0-14.0) mmol/L BUN 16 (7-18) mg/dL Creatinine 0.7 (0.6-1.0) mg/dL Est Cr Clr Drug Dosing 75.69 mL/min Estimated GFR (MDRD) > 60 (>60) Glucose 134 H (74-106) mg/dL Calcium 8.0 L D (8.5-10.1) mg/dL Total Bilirubin (0.2-1.0) mg/dL AST (15-37) U/L ALT (12-78) U/L Alkaline Phosphatase (46-116) U/L Total Protein (6.4-8.2) g/dL Albumin (3.4-5.0) g/dL Globulin (2.3-3.5) g/dL Albumin/Globulin Ratio (1.2-2.2) Urine Color Urine Appearance Urine pH (4.5-8.0) Ur Specific [place] (1.008-1.030) Urine Protein (NEGATIVE) mg/dL Urine Glucose (UA) (NEGATIVE) mg/dL Urine Ketones (NEGATIVE) mg/dL Urine Occult Blood (NEGATIVE) Urine Nitrite (NEGATIVE) Urine Bilirubin (NEGATIVE) Urine Urobilinogen (NORMAL) mg/dL Ur Leukocyte Esterase (NEGATIVE) Urine RBC (0-5) Urine WBC (0-5) Ur Epithelial Cells Amorphous Sediment Urine Bacteria Urine Mucus Urine Opiates Screen (NEGATIVE) Ur Oxycodone Screen (NEGATIVE) Urine Methadone Screen (NEGATIVE) Ur Propoxyphene Screen (NEGATIVE) Ur Barbiturates Screen (NEGATIVE) Ur Tricyclics Screen (NEGATIVE) Ur Phencyclidine Scrn (NEGATIVE) Ur Amphetamine Screen (NEGATIVE) U Methamphetamines Scrn (NEGATIVE) Urine MDMA Screen (NEGATIVE) U Benzodiazepines Scrn (NEGATIVE) U Cocaine Metab Screen (NEGATIVE) U Marijuana (THC) Screen (NEGATIVE) Med Orders - Current: Current Medications Clonidine HCl (Catapres) 0.1 mg PO Q6H PRN PRN Reason: Other Estradiol (Estradiol) 0.5 mg PO BEDTIME [facility] Last Admin: 06/01/18 23:23 Dose: Not Given Hydromorphone HCl (Dilaudid Paper Bag Press Operator 15 Mg In Ns 30 Ml) 15 mg IV ASDIRECTED [facility]; Protocol Last Admin: 06/01/18 18:35 Dose: 15 mg Lactated Ringer's (Ringers, Lactated) 1,000 mls @ 125 mls/hr IV ASDIRECTED [facility] Last Admin: 06/02/18 02:35 Dose: 125 mls/hr Ibuprofen (Motrin) 800 mg PO Q6H PRN PRN Reason: Pain Last Admin: 06/02/18 05:18 Dose: 800 mg Ketorolac Tromethamine (Toradol) 10 mg PO Q4HR PRN PRN Reason: Pain Stop: 06/06/18 17:50 Ondansetron HCl (Zofran Odt) 4 mg PO Q4H PRN PRN Reason: Nausea/Vomiting Last Admin: 06/02/18 07:55 Dose: 4 mg Quetiapine Fumarate (Seroquel) 25 mg PO BEDTIME [facility] Last Admin: 06/01/18 21:04 Dose: 25 mg Sodium Chloride (Saline Flush) 10 ml FLUSH ASDIRECTED PRN PRN Reason: Keep Vein Open Last Admin: 06/01/18 20:08 Dose: 10 ml Discontinued Medications Sodium Chloride (Normal Saline) 80 mls @ 3 mls/sec IV ASDIRECTED [facility] Last Admin: 06/01/18 20:08 Dose: 3 mls/sec Iohexol (Omnipaque) 20 ml PO ONETIME ONE Stop: 06/01/18 18:15 Last Admin: 06/01/18 18:36 Dose: 20 ml Iopamidol (Isovue-300 (61%)) 69 ml IV . DIRECTED [facility] Last Admin: 06/01/18 20:08 Dose: 69 ml Ondansetron HCl (Zofran Odt) 4 mg PO Q6H PRN PRN Reason: Nausea able to take PO Temazepam (Restoril) 15 mg PO BEDTIME PRN PRN Reason: Sleep - Exam General: Alert, Oriented HEENT: Pupils Equal Neck: Supple Lungs: Clear to Auscultation, Normal Respiratory Effort Cardiovascular: Regular Rate, Regular Rhythm GI/Abdominal Exam: Tender Peripheral Pulses: 1+: Radial (L), Radial (R) Skin: Warm, Dry, Intact - Problem List Review Problem List Initiated/Reviewed/Updated: Yes - My Orders Last 24 Hours: My Active Orders 06/01/18 17:41 Patient Status [ADT] Routine Ambulate [RC] QID Height and Weight [RC] DAILY May Shower [RC] ASDIRECTED Oxygen Therapy [RC] .PRN Up ad [place]iza [RC] ASDIRECTED Up to Chair [RC] QID VTE/DVT Education [RC] Per Unit Routine Vital Signs [RC] Q4H DRUG SCREEN, URINE [URCHEM] Routine UA W/MICROSCOPIC [URIN] Routine Sodium Chloride 0.9% [Saline Flush] 10 ml FLUSH ASDIRECTED PRN Peripheral IV Insertion Adult [OM.PC] Routine Resuscitation Status Routine 06/01/18 17:43 Intake and Output [RC] QSHIFT 06/01/18 17:45 Peripheral IV Care [RC] Q12H Lactated Ringers [Ringers, Lactated] 1,000 ml IV ASDIRECTED 06/01/18 17:49 Ibuprofen [Motrin] 800 mg PO Q6H PRN Ketorolac [Toradol] 10 mg PO Q4HR PRN Ondansetron [Zofran ODT] 4 mg PO Q4H PRN 06/01/18 17:53 Abdomen Pelvis w Cont [CT] Routine 06/01/18 18:15 HYDROmorphone/Normal Saline [Dilaudid [employer] 15 MG in NS 30 ML] 15 mg IV ASDIRECTED 06/01/18 18:41 SCD [Sequential Compression Device] [OM.PC] Routine 06/01/18 21:00 Estradiol 0.5 mg PO BEDTIME QUEtiapine [SEROquel] 25 mg PO BEDTIME 06/01/18 21:08 cloNIDine [Catapres] 0.1 mg PO Q6H PRN 06/02/18 09:25 Ready for Discharge [RC] PER UNIT ROUTINE 06/02/18 Breakfast Regular Diet [DIET] - Plan Plan:: Assessment/Plan: #1. Abdominal pain. The etiology is drug withdrawal. Her drug screen came out positive for oxycodone. I spoke with her this morning I asked her how often she is taking oxycodone and she said every 4 hours. This was given to her after she had her hysterectomy and kidney stones. 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 She'll be discharged home today without narcotics and if her blood pressures are appropriate she I will give her a prescription for clonidine but her blood pressure is low this morning. She'll be going home with her estrogen and anti-inflammatory medication. #2. History of recent hysterectomy. This appears to be stable at the present time. #3. History of kidney stones. this is asymptomatic at the present time. The CT of the abdomen showed nephrolithiasis in the right kidney nonobstructing.
--- NOTE | 2018-06-02 10:07 | PCM.DCSUM1 ---
Discharge Summary - Hospital Course Brief History: Jill was admitted because of abdominal pain. She said 3 surgical procedures recently and said that she was nauseated and vomiting unable to hold down any food for 3 days. Diagnosis: Stroke: No - Discharge Data Discharge Date: 06/02/18 Discharge Disposition: Home, Self-Care 01 Condition: Good - Patient Summary/Data Hospital Course: After admission blood was drawn and a CT was done. The urinalysis showed positive for oxycodone which she had denied taking upon admission. The CT was done which showed no evidence of an acute abdomen. There was calcium in the right kidney but did not show any evidence of an acute abdominal problem. The day after admission I spoke with her and asked her how often she is taking oxycodone and she was truthful saying that she was taking oxycodone every 4 hours that had been given her post surgery and she was out of the medication. I told her that this is what's causing her abdominal pain with withdrawal of narcotics and she should not be taking any narcotics. She is being discharged home in stable condition would consider clonidine if her blood pressure is stable to help with withdrawal symptoms. I also offered her a withdrawal program at [facility] and she refused. - Patient Instructions Diet: Regular Diet as Tolerated Activity: As Tolerated Showering/Bathing: May Shower Notify Provider of: Fever, Increased Pain, Nausea and/or Vomiting - Discharge Plan *PRESCRIPTION DRUG MONITORING PROGRAM REVIEWED*: Not Applicable Home Medications: Home Meds QUEtiapine [SEROquel] 25 mg PO BEDTIME 07/05/14 [History] Ibuprofen 800 mg PO Q6H PRN 02/12/18 [History] Ketorolac Tromethamine 10 mg PO Q4HR PRN 02/12/18 [History] Ondansetron [Zofran ODT] 4 mg PO Q4H PRN tab.dis 02/14/18 [Rx] Estradiol 0.5 mg PO DAILY 04/19/18 [History] Referrals: Deo Arredondo Sr, MD [Primary Care Provider] - 06/09/18 11:00 am (Recheck potassium level) - Discharge Summary/Plan Comment Discharge Summary/Plan Comment: Assessment/Plan: #1. Abdominal pain. The etiology is drug withdrawal. Her drug screen came out positive for oxycodone. I spoke with her this morning I asked her how often she is taking oxycodone and she said every 4 hours. This was given to her after she had her hysterectomy and kidney stones. 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 She'll be discharged home today without narcotics and if her blood pressures are appropriate she I will give her a prescription for clonidine but her blood pressure is low this morning. She'll be going home with her estrogen and anti-inflammatory medication. #2. History of recent hysterectomy. This appears to be stable at the present time. #3. History of kidney stones. this is asymptomatic at the present time. The CT of the abdomen showed nephrolithiasis in the right kidney nonobstructing. - General Info Date of Service: 06/02/18 Functional Status: Reports: Pain Controlled - Review of Systems General: Reports: Weakness HEENT: Reports: No Symptoms Pulmonary: Reports: No Symptoms Cardiovascular: Reports: No Symptoms Gastrointestinal: Reports: Abdominal Pain Genitourinary: Reports: No Symptoms Musculoskeletal: Reports: No Symptoms Skin: Reports: No Symptoms Neurological: Reports: No Symptoms Psychiatric: Reports: No Symptoms - Patient Data Vitals - Most Recent: Last Vital Signs Temp 97.3 F 06/02/18 07:31 Pulse 61 06/02/18 07:31 Resp 16 06/02/18 07:31 BP 106/79 06/02/18 07:31 Pulse Ox 96 06/02/18 07:44 Weight - Most Recent: 102 lb I&O - Last 24 hours: Intake & Output 06/01/18 06/02/18 06/02/18 22:59 06:59 14:59 Intake Total 450 1277 120 Output Total 900 200 200 Balance -450 1077 -80 Lab Results - Last 24 hrs: Laboratory Results - last 24 hr 06/01/18 06/01/18 06/01/18 Range/Units 17:41 17:41 17:41 WBC (4.5-11.0) K/uL RBC (3.30-5.50) M/uL Hgb (12.0-15.0) g/dL Hct (36.0-48.0) % MCV (80-98) fL MCH (27-31) pg MCHC (32-36) % Plt Count (150-400) K/uL Neut % (Auto) (36-66) % Lymph % (Auto) (24-44) % [place] % (Auto) (2-6) % Eos % (Auto) (2-4) % Baso % (Auto) (0-1) % Sodium 140 (140-148) mmol/L Potassium 5.8 H (3.6-5.2) mmol/L Chloride 108 (100-108) mmol/L Carbon Dioxide 19 L (21-32) mmol/L Anion Gap 18.8 H (5.0-14.0) mmol/L BUN 18 (7-18) mg/dL Creatinine 0.7 (0.6-1.0) mg/dL Est Cr Clr Drug Dosing 75.69 mL/min Estimated GFR (MDRD) > 60 (>60) Glucose 88 (74-106) mg/dL Calcium 9.9 (8.5-10.1) mg/dL Total Bilirubin 0.6 (0.2-1.0) mg/dL AST 28 (15-37) U/L ALT 18 (12-78) U/L Alkaline Phosphatase 59 (46-116) U/L Total Protein 6.9 (6.4-8.2) g/dL Albumin 3.9 (3.4-5.0) g/dL Globulin 3.0 (2.3-3.5) g/dL Albumin/Globulin Ratio 1.3 (1.2-2.2) Urine Color Yellow Urine Appearance Clear Urine pH 6.0 (4.5-8.0) Ur Specific [place] 1.015 (1.008-1.030) Urine Protein Negative (NEGATIVE) mg/dL Urine Glucose (UA) Normal (NEGATIVE) mg/dL Urine Ketones Negative (NEGATIVE) mg/dL Urine Occult Blood Moderate (NEGATIVE) Urine Nitrite Negative (NEGATIVE) Urine Bilirubin Negative (NEGATIVE) Urine Urobilinogen Normal (NORMAL) mg/dL Ur Leukocyte Esterase Negative (NEGATIVE) Urine RBC 0-5 (0-5) Urine WBC 0-5 (0-5) Ur Epithelial Cells Rare Amorphous Sediment Not seen Urine Bacteria Few Urine Mucus Not seen Urine Opiates Screen Negative (NEGATIVE) Ur Oxycodone Screen Presumptive positive H (NEGATIVE) Urine Methadone Screen Negative (NEGATIVE) Ur Propoxyphene Screen Negative (NEGATIVE) Ur Barbiturates Screen Negative (NEGATIVE) Ur Tricyclics Screen Negative (NEGATIVE) Ur Phencyclidine Scrn Negative (NEGATIVE) Ur Amphetamine Screen Negative (NEGATIVE) U Methamphetamines Scrn Negative (NEGATIVE) Urine MDMA Screen Negative (NEGATIVE) U Benzodiazepines Scrn Negative (NEGATIVE) U Cocaine Metab Screen Negative (NEGATIVE) U Marijuana (THC) Screen Negative (NEGATIVE) 06/01/18 06/02/18 Range/Units 21:16 04:50 WBC 7.4 (4.5-11.0) K/uL RBC 3.97 (3.30-5.50) M/uL Hgb 11.8 L (12.0-15.0) g/dL Hct 34.4 L (36.0-48.0) % MCV 87 (80-98) fL MCH 30 (27-31) pg MCHC 34 (32-36) % Plt Count 294 (150-400) K/uL Neut % (Auto) 57 (36-66) % Lymph % (Auto) 35 (24-44) % [place] % (Auto) 6 (2-6) % Eos % (Auto) 1 L (2-4) % Baso % (Auto) 0 (0-1) % Sodium 140 (140-148) mmol/L Potassium 3.4 L (3.6-5.2) mmol/L Chloride 107 (100-108) mmol/L Carbon Dioxide 24 (21-32) mmol/L Anion Gap 12.4 (5.0-14.0) mmol/L BUN 16 (7-18) mg/dL Creatinine 0.7 (0.6-1.0) mg/dL Est Cr Clr Drug Dosing 75.69 mL/min Estimated GFR (MDRD) > 60 (>60) Glucose 134 H (74-106) mg/dL Calcium 8.0 L D (8.5-10.1) mg/dL Total Bilirubin (0.2-1.0) mg/dL AST (15-37) U/L ALT (12-78) U/L Alkaline Phosphatase (46-116) U/L Total Protein (6.4-8.2) g/dL Albumin (3.4-5.0) g/dL Globulin (2.3-3.5) g/dL Albumin/Globulin Ratio (1.2-2.2) Urine Color Urine Appearance Urine pH (4.5-8.0) Ur Specific [place] (1.008-1.030) Urine Protein (NEGATIVE) mg/dL Urine Glucose (UA) (NEGATIVE) mg/dL Urine Ketones (NEGATIVE) mg/dL Urine Occult Blood (NEGATIVE) Urine Nitrite (NEGATIVE) Urine Bilirubin (NEGATIVE) Urine Urobilinogen (NORMAL) mg/dL Ur Leukocyte Esterase (NEGATIVE) Urine RBC (0-5) Urine WBC (0-5) Ur Epithelial Cells Amorphous Sediment Urine Bacteria Urine Mucus Urine Opiates Screen (NEGATIVE) Ur Oxycodone Screen (NEGATIVE) Urine Methadone Screen (NEGATIVE) Ur Propoxyphene Screen (NEGATIVE) Ur Barbiturates Screen (NEGATIVE) Ur Tricyclics Screen (NEGATIVE) Ur Phencyclidine Scrn (NEGATIVE) Ur Amphetamine Screen (NEGATIVE) U Methamphetamines Scrn (NEGATIVE) Urine MDMA Screen (NEGATIVE) U Benzodiazepines Scrn (NEGATIVE) U Cocaine Metab Screen (NEGATIVE) U Marijuana (THC) Screen (NEGATIVE) Med Orders - Current: Current Medications Clonidine HCl (Catapres) 0.1 mg PO Q6H PRN PRN Reason: Other Estradiol (Estradiol) 0.5 mg PO BEDTIME [facility] Last Admin: 06/01/18 23:23 Dose: Not Given Hydromorphone HCl (Dilaudid Right Of Way App[employer] 15 Mg In Ns 30 Ml) 15 mg IV ASDIRECTED [facility]; Protocol Last Admin: 06/01/18 18:35 Dose: 15 mg Lactated Ringer's (Ringers, Lactated) 1,000 mls @ 125 mls/hr IV ASDIRECTED [facility] Last Admin: 06/02/18 02:35 Dose: 125 mls/hr Ibuprofen (Motrin) 800 mg PO Q6H PRN PRN Reason: Pain Last Admin: 06/02/18 05:18 Dose: 800 mg Ketorolac Tromethamine (Toradol) 10 mg PO Q4HR PRN PRN Reason: Pain Stop: 06/06/18 17:50 Ondansetron HCl (Zofran Odt) 4 mg PO Q4H PRN PRN Reason: Nausea/Vomiting Last Admin: 06/02/18 07:55 Dose: 4 mg Quetiapine Fumarate (Seroquel) 25 mg PO BEDTIME [facility] Last Admin: 06/01/18 21:04 Dose: 25 mg Sodium Chloride (Saline Flush) 10 ml FLUSH ASDIRECTED PRN PRN Reason: Keep Vein Open Last Admin: 06/01/18 20:08 Dose: 10 ml Discontinued Medications Sodium Chloride (Normal Saline) 80 mls @ 3 mls/sec IV ASDIRECTED [facility] Last Admin: 06/01/18 20:08 Dose: 3 mls/sec Iohexol (Omnipaque) 20 ml PO ONETIME ONE Stop: 06/01/18 18:15 Last Admin: 06/01/18 18:36 Dose: 20 ml Iopamidol (Isovue-300 (61%)) 69 ml IV . DIRECTED [facility] Last Admin: 06/01/18 20:08 Dose: 69 ml Ondansetron HCl (Zofran Odt) 4 mg PO Q6H PRN PRN Reason: Nausea able to take PO Temazepam (Restoril) 15 mg PO BEDTIME PRN PRN Reason: Sleep - Exam General: Reports: Alert, Oriented HEENT: Reports: Pupils Equal, Pupils Reactive, EOMI, Mucous Membr. Moist/[place] Neck: Reports: Supple Lungs: Reports: Clear to Auscultation, Normal Respiratory Effort Cardiovascular: Reports: Regular Rate, Regular Rhythm GI/Abdominal Exam: Tender Extremities: Normal Inspection, Normal Range of Motion, Non-Tender, No Pedal Edema, Normal Capillary Refill Skin: Reports: Warm, Dry, Intact Neurological: Reports: No New Focal Deficit Psy/Mental Status: Reports: Alert, Normal Affect, Normal Mood
== END 2018-06-02 10:10 | disposition home or self-care (01) ==
LOC: JP.MS 16:26
PROVIDERS: ADMIT Internal Medicine; ATTEND Internal Medicine
DX: F11.23 Opioid dependence with withdrawal (principal); R10.9 Unspecified abdominal pain; T40.2X1A Poisoning by other opioids, accidental (unintentional), initial encounter; E86.0 Dehydration; F41.9 Anxiety disorder, unspecified; N20.0 Calculus of kidney; Z87.891 Personal history of nicotine dependence; Z87.442 Personal history of urinary calculi; Z79.899 Other long term (current) drug therapy; Z90.710 Acquired absence of both cervix and uterus; Z88.8 Allergy status to other drugs, medicaments and biological substances; Z88.2 Allergy status to sulfonamides
CPT/HCPCS: 36415; 74177; 80048; 80053; 80305; 81001; 85025; 94762; 96360; 96361; A9270; G0378; J1170; J7030; J7050; J7120; Q9965; Q9967

== ENCOUNTER 2018-07-02 16:31 | Emergency (ER) | payer BC ==
[2018-07-02] MEDS ORDERED: Lactated Ringers 1,000 ML IV SCH (17:15)
[2018-07-02] MEDS ORDERED: hydrOXYzine HCl 100 MG/2 ML SDV IM ONE (17:15)
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
[2018-07-02 18:09] VITALS: BP 139/100
--- NOTE | 2018-07-03 08:58 | CR ---
Abdomen 1V Upright INDICATION: Pain FINDINGS: The bowel gas pattern is unremarkable. There is no bowel distention. There are no pathologi c air-fluid levels. No free air is seen. No pathologic calcifications are demonstrated. There is inco mplete visualization of the inferior pelvis. IMPRESSION: No acute findings are demonstrated.
== END 2018-07-02 18:33 | disposition home or self-care (01) ==
LOC: JP.ED 16:31
DX: K59.04 Chronic idiopathic constipation (principal); T40.2X5A Adverse effect of other opioids, initial encounter; I10 Essential (primary) hypertension; Z88.5 Allergy status to narcotic agent; Z88.2 Allergy status to sulfonamides; Z88.6 Allergy status to analgesic agent; Z88.8 Allergy status to other drugs, medicaments and biological substances; Z87.891 Personal history of nicotine dependence
CPT/HCPCS: 36415; 74018; 80053; 80305; 81001; 81025; 83605; 85025; 96360; 96372; 99284; J3410; J7120

== ENCOUNTER 2018-07-04 13:35 | Emergency (ER) | payer BC ==
[2018-07-04] MEDS ORDERED: Metoclopramide 10 MG/2 ML SDV IVPUSH ONE (14:05)
[2018-07-04] MEDS ORDERED: Lactated Ringers 1,000 ML IV ONE (14:13)
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
[2018-07-04] MEDS ORDERED: Ketorolac 30 MG/ML SDV IVPUSH ONE (14:21)
[2018-07-04 14:36] VITALS: BP 164/98
--- NOTE | 2018-07-06 09:54 | CR ---
Abdomen 2V AP Flat Upright CLINICAL HISTORY: Abdominal pain FINDINGS: The bowel gas pattern is nonobstructive. No abnormal masses are noted. No free air is seen. There is moderate retained feces in the rectosigmoid colon IMPRESSION: Moderate fecal retention in the rectosigmoid colon
== END 2018-07-04 15:43 | disposition home or self-care (01) ==
LOC: JP.ED 13:35
DX: R10.32 Left lower quadrant pain (principal); I10 Essential (primary) hypertension; I48.91 Unspecified atrial fibrillation; F41.9 Anxiety disorder, unspecified; Z79.899 Other long term (current) drug therapy; Z88.2 Allergy status to sulfonamides; Z88.6 Allergy status to analgesic agent
CPT/HCPCS: 36415; 74019; 80048; 81001; 83605; 85027; 86140; 96361; 96374; 96375; 99284; J1885; J2765; J7120

== ENCOUNTER 2018-07-06 12:07 | Emergency (ER) | payer BC ==
[2018-07-06 12:12] VITALS: BP 133/92
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
== END 2018-07-06 13:44 | disposition home or self-care (01) ==
LOC: JP.ED 12:07
DX: R10.9 Unspecified abdominal pain (principal); I10 Essential (primary) hypertension; Z87.891 Personal history of nicotine dependence; Z88.2 Allergy status to sulfonamides; Z88.5 Allergy status to narcotic agent
CPT/HCPCS: 99284

== ENCOUNTER 2019-04-08 13:39 | Emergency (ER) | payer BC ==
[2019-04-08 14:04] VITALS: BP 169/105
[2019-04-08] MEDS ORDERED: Ketorolac 60 MG/2 ML SDV IM ONE (14:54)
[2019-04-08] MEDS ORDERED: Acetaminophen/oxyCODONE 325-5 MG Tab PO ONE (14:55)
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
== END 2019-04-08 15:14 | disposition home or self-care (01) ==
LOC: JP.ED 13:39
DX: N20.1 Calculus of ureter (principal); I48.91 Unspecified atrial fibrillation; I10 Essential (primary) hypertension; J45.909 Unspecified asthma, uncomplicated; Z88.8 Allergy status to other drugs, medicaments and biological substances; Z88.5 Allergy status to narcotic agent; Z79.899 Other long term (current) drug therapy
CPT/HCPCS: 36415; 81001; 85025; 96372; 99284; A9270; J1885

== ENCOUNTER 2019-05-16 13:38 | Emergency (ER) | payer BC ==
[2019-05-16 13:53] VITALS: BP 177/103
[2019-05-16] MEDS ORDERED: Ondansetron 4 MG Tab.DIS PO ONE (13:59)
[2019-05-16] MEDS ORDERED: oxyCODONE 5 MG Tab PO ONE (15:05)
--- NOTE | 2019-05-16 15:13 | CRLCT ---
Indication: Right flank pain Technique: Routine noncontrast CT abdomen and pelvis Please note that all CT scans at this facility use dose modulation, iterative reconstruction, and/or weight-based dosing when appropriate to reduce radiation dose to as low as reasonably achievable. Comparison: May 05, 2018 Findings: Noncontrast enhanced liver is normal. Normal gallbladder. No biliary obstruction. Mild increased density at the cortical medullary junction regarding both kidneys bilaterally. No ureteral stone or bladder stone. Pelvic phleboliths. No hydronephrosis or perinephric stranding. No hydroureter. Normal noncontrast enhanced pancreas, adrenal glands and spleen. Normal appendix. The cecum is distended within the right anterior pelvis containing air, fluid and stool. No inflammatory changes. No free fluid or free air. No adenopathy. Chronic deformity of the distal coccyx. No vertebral body fracture. Impression: No ureteral or bladder stone. No hydronephrosis. Mild chronic nephrocalcinosis. Distended loop of cecum within the right side of the pelvis containing a large amount of stool, possibly representing constipation causing the clinical symptoms. Normal appendix. Please note that all CT scans at this facility use dose modulation, iterative reconstruction, and/or weight-based dosing when appropriate to reduce radiation dose to as low as reasonably achievable. Dictated by John Thorne MD @ May 16 2019 3:05PM Signed by Dr. John Thorne @ May 16 2019 3:13PM
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
== END 2019-05-16 16:32 | disposition home or self-care (01) ==
LOC: JP.ED 13:38
DX: R10.9 Unspecified abdominal pain (principal); I10 Essential (primary) hypertension; I48.91 Unspecified atrial fibrillation; Z79.899 Other long term (current) drug therapy; Z88.2 Allergy status to sulfonamides; Z88.6 Allergy status to analgesic agent
CPT/HCPCS: 74176; 81001; 99284; A9270

== ENCOUNTER 2019-05-25 22:30 | Emergency (ER) | payer BC ==
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
[2019-05-25] MEDS ORDERED: Ketorolac 60 MG/2 ML SDV IM ONE (23:11)
--- NOTE | 2019-05-25 23:45 | CRLCT ---
INDICATION: Pain after fall down stairs. COMPARISON: CT of the abdomen and pelvis without contrast from 05/16/2019 TECHNIQUE: CT examination of the chest, abdomen, and pelvis was performed without contrast enhancement using 3 mm thick axial sections from above the apices of the lungs through the symphysis pubis. Oral contrast was not administered. Please note that all CT scans at this facility use dose modulation, iterative reconstruction, and/or weight-based dosing when appropriate to reduce radiation dose to as low as reasonably achievable. FINDINGS: : The lungs are clear with no sign of significant infiltrate or mass. There is no sign of mediastinal or hilar mass or adenopathy. Sensitivity is limited by the absence of contrast enhancement. The heart and great vessels are normal in appearance. There is no sign of supraclavicular or axillary mass or adenopathy. In the abdomen, the unenhanced appearance of the liver, spleen, pancreas, and adrenals are normal in appearance. The unenhanced kidneys are normal in appearance. The gallbladder is normal in appearance. The abdominal aorta is normal in caliber with no sign of dilatation. There is no sign of retroperitoneal mass or adenopathy. The stomach, loops of small bowel, and colon in the abdomen are normal in appearance. In the pelvis, the appendix is normal in appearance with no sign of inflammatory process. The previously seen distension of the colon by fecal material has resolved. The loops of small bowel and colon in the pelvis are normal in appearance. The uterus is absent and the adnexal regions are normal in appearance. The urinary bladder is normal in appearance. There is no sign of pelvic or inguinal mass or adenopathy. There is mild scoliosis of the thoracic spine convex towards the left and of the thoracolumbar spine convex towards the right. There is no sign of acute osseous injury, with no sign of fracture of the thoracic or lumbar spines, pelvis, or hips. There is no sign of fracture of the ribs or of the shoulder girdle. IMPRESSION: No sign of traumatic injury to the chest, abdomen, or pelvis. Normal CT of the chest without contrast. Normal CT of the abdomen without contrast. Normal CT of the pelvis status post hysterectomy. Mild S-shaped scoliosis of the thoracic and lumbar spines with the thoracic curve convex towards the left. Please note that all CT scans at this facility use dose modulation, iterative reconstruction, and/or weight-based dosing when appropriate to reduce radiation dose to as low as reasonably achievable. Dictated by Kofi Regan MD @ May 25 2019 11:31PM Signed by Dr. Kofi Regan @ May 25 2019 11:43PM
[2019-05-25 23:57] VITALS: BP 139/98; PULSE 84
== END 2019-05-25 23:56 | disposition home or self-care (01) ==
LOC: JP.ED 22:30
DX: S20.221A Contusion of right back wall of thorax, initial encounter (principal); S70.01XA Contusion of right hip, initial encounter; J45.909 Unspecified asthma, uncomplicated; Z88.2 Allergy status to sulfonamides; Z88.8 Allergy status to other drugs, medicaments and biological substances; Z88.5 Allergy status to narcotic agent; Z79.899 Other long term (current) drug therapy; W10.9XXA Fall (on) (from) unspecified stairs and steps, initial encounter
CPT/HCPCS: 71250; 74176; 96372; 99284; J1885

== ENCOUNTER 2019-11-09 12:47 | Emergency (ER) | payer BC ==
[2019-11-09 13:31] VITALS: BP 163/104; PULSE 104
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
== END 2019-11-09 15:14 | disposition home or self-care (01) ==
LOC: JP.ED 12:47
DX: G89.18 Other acute postprocedural pain (principal); M79.605 Pain in left leg; Z88.2 Allergy status to sulfonamides; Z88.8 Allergy status to other drugs, medicaments and biological substances; Z88.5 Allergy status to narcotic agent; Z79.899 Other long term (current) drug therapy
CPT/HCPCS: 99283

== ENCOUNTER 2019-11-22 22:43 | Emergency (ER) | payer BC ==
[2019-11-22 22:54] VITALS: BP 155/102; PULSE 113
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
== END 2019-11-23 00:11 | disposition home or self-care (01) ==
LOC: JP.ED 22:43
DX: G89.18 Other acute postprocedural pain (principal); M79.675 Pain in left toe(s); I10 Essential (primary) hypertension; J45.909 Unspecified asthma, uncomplicated; Z88.5 Allergy status to narcotic agent; Z88.2 Allergy status to sulfonamides
CPT/HCPCS: 99283

== ENCOUNTER 2020-03-06 11:38 | Day surgery (SDC) | payer BC ==
[~2020-03-06 11:38] MED LIST: Bupivacaine 0.5% 50 ML MDV ONE; Lidocaine 2% 20 ML MDV ONE
[2020-03-06] MEDS ORDERED: fentaNYL 100 MCG/2 ML SDV ONE (12:14)
[2020-03-06] MEDS ORDERED: Midazolam 1 MG/ML 2 ML SDV ONE ×2 (12:15→13:21)
[2020-03-06] MEDS ORDERED: Propofol 200 MG/20 ML SDV ONE ×3 (12:15→13:44)
[2020-03-06] MEDS ORDERED: Lactated Ringers 1,000 ML IV SCH (12:45)
[2020-03-06] MEDS ORDERED: ceFAZolin 2 GM in Premix Bag 1 BAG IV ONE (14:00)
[2020-03-06] MEDS ORDERED: Acetaminophen/oxyCODONE 325-5 MG Tab PO PRN (15:39)
[2020-03-06] MEDS ORDERED: hydrOXYzine HCl 25 MG Tab PO PRN (15:40)
[2020-03-06] MEDS ORDERED: Ketorolac 30 MG/ML SDV IVPUSH ONE (15:45)
[2020-03-06 16:07] VITALS: BP 128/88; PULSE 68
--- NOTE | 2020-03-06 21:52 | OR ---
DATE OF PROCEDURE: 03/06/2020 SURGEON: Suleman Lucio DPM Prior to signing consent, we did discuss in the preoperative area, possible risks and complications with the patient, which we told her include, but are not limited to infection, so if she has any nausea, vomiting, fever, chills after surgery, to let us know because we may need to prescribe antibiotics, other possible risks of blood clots. Total blood clots can occur in the leg, move to the lungs and be potentially fatal, so if she does have any chest pain, calf pain, or difficulty breathing after surgery, to go to the emergency room immediately because blood clots can be treated, but if not treated, they can cause , other possible risks, or need for surgery again in the future, inability to achieve the desired result, slow healing or nonhealing incision, unsightly or painful scars, nonunion which means the bones sewn heal together postoperative pain, postoperative swelling, loss of the toe that we are operating on, and complex regional pain syndrome which is nerve pain syndrome that can occur, but is rare. We did preoperatively discuss the fact that the toe will be shorter after we resect the bone in order to get the ends of the bone back together. MARKETING ANALYST: None. 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 PROCEDURE: Revision of arthrodesis of left 2nd toe proximal interphalangeal joint with osseous implant. ANESTHESIA: Was local with IV sedation. HEMOSTASIS: Obtained with an ankle tourniquet on left ankle at 250 mmHg. ESTIMATED BLOOD LOSS: 5 mL. MATERIALS: One osseous toe implant was used. It was an into bones allo implant. INJECTABLES: A total of 10 mL of 1:1 mixture of lidocaine 1% plain and Marcaine 0.5% plain was injected preoperatively. PATHOLOGY: None. CONDITION: Stable. INDICATIONS FOR SURGERY: Painful nonunion, proximal interphalangeal joint of the left 2nd toe. PROCEDURE IN DETAIL: The patient was brought to the operating room, placed on the operating table in supine position. Following IV sedation, anesthesia was obtained with a total of 10 mL of 1:1 mixture of lidocaine 2% plain and Marcaine 0.5% plain. The left foot was scrubbed, prepped, and draped in the usual aseptic manner and raised to 60 degrees for hemostasis and exsanguinated using Esmarch bandage. The tourniquet was inflated. Foot was lowered to table. Skin incision was made on the dorsal aspect of the left 2nd toe. Incisions were deepened through subcutaneous tissues with care taken to identify and retract all vital neurovascular structures following subcutaneous dissection. An incision was made into the extensor tendon and the proximal interphalangeal joint was identified. It had a great deal of scar tissue around it. After this was resected, we found the 2-step implant and removed it. We then used a rongeur to remove sclerotic nonviable bone down to healthy bleeding bone on both the distal and the proximal phalanx and the proximal and the middle phalanx. The holes for the implant were drilled and then the implant was seated. It was very well seated in the proximal phalanx. It was slightly loose in the middle phalanx. So, some of the patient's own bone was placed from the bone that was resected into the canal of the middle phalanx to help make it a tighter fit and then the extensor tendon on both ends was sutured down with extra suture in order to hold it in place. We did check both fluoroscopically and visually, and found that the toe was in a rectus position and there was good [id number] contact fluoroscopically. These images were saved. Then, the incision was flushed with copious amounts of sterile saline. The subcutaneous closure was done with 3-0 Vicryl, skin closure with 3-0 Prolene, and then the toe was dressed with Xeroform, 4x4s, Kerlix, and Coban. The patient was returned to the recovery room with vital signs stable and vascular status intact to both feet. The patient was given instructions to rest and elevate the left foot. We told her to keep dressings clean, dry, and intact and then she must absolutely completely stay off the left foot for 8 weeks in order to allow the left 2nd toe to heal. Once the incision has healed, we will start having her use a bone stimulator. We told her, but that will be in 2 to 3 weeks because we want to make sure the incision is healed before she starts using the bone stimulator. The patient related understanding. The patient will return to clinic in 1 week, at which time, she will be re-evaluated. The patient was told to go to the emergency room immediately if she has any nausea, vomiting, fever, chills, chest pain, calf pain, or difficulty breathing postoperatively. Suleman Lucio DPM /[id number]
== END 2020-03-06 16:45 | disposition home or self-care (01) ==
LOC: JP.SDS 11:38
PROVIDERS: ATTEND Podiatrist Foot & Ankle Surgery
DX: M96.0 Pseudarthrosis after fusion or arthrodesis (principal); M20.42 Other hammer toe(s) (acquired), left foot; M79.675 Pain in left toe(s); I48.0 Paroxysmal atrial fibrillation; F41.9 Anxiety disorder, unspecified; Z79.899 Other long term (current) drug therapy; Z88.2 Allergy status to sulfonamides; Z88.5 Allergy status to narcotic agent; Z87.891 Personal history of nicotine dependence
CPT/HCPCS: 28285; 76000; J0690; J1885; J2001; J2250; J2704; J3010; J3490; J7120

== ENCOUNTER 2020-04-06 17:26 | Emergency (ER) | payer BC ==
[2020-04-06 17:54] VITALS: BP 172/111; PULSE 94
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
== END 2020-04-06 18:37 | disposition home or self-care (01) ==
LOC: JP.ED 17:26
DX: G89.18 Other acute postprocedural pain (principal); I48.91 Unspecified atrial fibrillation; I10 Essential (primary) hypertension; J45.909 Unspecified asthma, uncomplicated; F41.9 Anxiety disorder, unspecified; Z79.899 Other long term (current) drug therapy; Z88.5 Allergy status to narcotic agent; Z88.2 Allergy status to sulfonamides
CPT/HCPCS: 99283

== ENCOUNTER 2020-04-19 14:14 | Emergency (ER) | payer BC ==
[2020-04-19 14:55] VITALS: BP 162/105; PULSE 87
[2020-04-19] MEDS ORDERED: Ketorolac 60 MG/2 ML SDV IM ONE (15:14)
[2020-04-19] MEDS ORDERED: Ondansetron 4 MG Tab.DIS PO ONE (15:15)
[2020-04-19] MEDS ORDERED: Acetaminophen/oxyCODONE 325-5 MG Tab PO STA (15:15)
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
== END 2020-04-19 16:18 | disposition home or self-care (01) ==
LOC: JP.ED 14:14
DX: N20.1 Calculus of ureter (principal); I48.91 Unspecified atrial fibrillation; I10 Essential (primary) hypertension; J45.909 Unspecified asthma, uncomplicated; Z88.5 Allergy status to narcotic agent; Z88.2 Allergy status to sulfonamides; Z79.899 Other long term (current) drug therapy; F41.9 Anxiety disorder, unspecified
CPT/HCPCS: 81001; 96372; 99284; A9270; J1885

== ENCOUNTER 2020-05-08 16:53 | Emergency (ER) | payer BC ==
[2020-05-08] MEDS ORDERED: Ondansetron 4 MG Tab.DIS PO ONE (18:48)
[2020-05-08 19:43] VITALS: BP 173/100; PULSE 68
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
== END 2020-05-08 20:26 | disposition home or self-care (01) ==
LOC: JP.ED 16:53
DX: N23 Unspecified renal colic (principal); I48.91 Unspecified atrial fibrillation; I10 Essential (primary) hypertension; F41.9 Anxiety disorder, unspecified; F17.210 Nicotine dependence, cigarettes, uncomplicated; Z88.5 Allergy status to narcotic agent; Z88.2 Allergy status to sulfonamides; J45.909 Unspecified asthma, uncomplicated; Z79.899 Other long term (current) drug therapy
CPT/HCPCS: 81001; 99284; A9270

== ENCOUNTER 2020-05-22 16:26 | Emergency (ER) | payer BC ==
[2020-05-22 16:34] VITALS: BP 166/109; PULSE 80
[2020-05-22] MEDS ORDERED: Ondansetron 4 MG Tab.DIS PO ONE (16:59)
[2020-05-22] MEDS ORDERED: Ketorolac 30 MG/ML SDV IVPUSH ONE (16:59)
[2020-05-22] MEDS ORDERED: Sodium Chloride 0.9% 10 ML Syringe FLUSH PRN (17:00)
[2020-05-22] MEDS ORDERED: Sodium Chloride 0.9% 1,000 ML IV SCH (17:00)
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
== END 2020-05-22 18:01 | disposition home or self-care (01) ==
LOC: JP.ED 16:26
DX: N20.0 Calculus of kidney (principal); I48.91 Unspecified atrial fibrillation; I10 Essential (primary) hypertension; J45.909 Unspecified asthma, uncomplicated; Z87.442 Personal history of urinary calculi; Z88.5 Allergy status to narcotic agent; Z88.8 Allergy status to other drugs, medicaments and biological substances; Z79.899 Other long term (current) drug therapy; Z88.2 Allergy status to sulfonamides
CPT/HCPCS: 96361; 96374; 99283; A9270; J1885; J7030

== ENCOUNTER 2020-06-10 13:13 | Emergency (ER) | payer BC ==
[2020-06-10 13:24] VITALS: BP 183/121; PULSE 98
[2020-06-10] MEDS ORDERED: Ondansetron 4 MG/2 ML SDV IVPUSH ONE (13:40)
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
[2020-06-10] MEDS ORDERED: HYDROmorphone 0.5 MG/0.5 ML Syringe IVPUSH ONE (13:41)
[2020-06-10] MEDS ORDERED: Ketorolac 30 MG/ML SDV IVPUSH ONE (13:42)
[2020-06-10] MEDS ORDERED: Sodium Chloride 0.9% 1,000 ML IV SCH (13:45)
== END 2020-06-10 15:53 | disposition home or self-care (01) ==
LOC: JP.ED 13:13
DX: N20.1 Calculus of ureter (principal); I10 Essential (primary) hypertension; F41.9 Anxiety disorder, unspecified; Z88.2 Allergy status to sulfonamides; Z88.8 Allergy status to other drugs, medicaments and biological substances; Z88.5 Allergy status to narcotic agent
CPT/HCPCS: 36415; 80048; 81001; 96361; 96374; 96375; 99284; J1170; J1885; J2405; J7030

== ENCOUNTER 2020-12-12 19:57 | Emergency (ER) | payer BC ==
[2020-12-12 20:18] VITALS: BP 141/108; PULSE 88
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
== END 2020-12-12 20:41 | disposition home or self-care (01) ==
LOC: JP.ED 19:57
DX: R00.2 Palpitations (principal); I10 Essential (primary) hypertension; I48.91 Unspecified atrial fibrillation; J45.909 Unspecified asthma, uncomplicated; Z88.2 Allergy status to sulfonamides; Z88.5 Allergy status to narcotic agent
CPT/HCPCS: 93005; 93010; 99283; 99284-25

== ENCOUNTER 2021-01-09 15:03 | Emergency (ER) | payer BC ==
[2021-01-09] MEDS ORDERED: Sodium Chloride 0.9% 10 ML Syringe FLUSH PRN (15:31)
[2021-01-09] MEDS ORDERED: Ondansetron 4 MG/2 ML SDV IVPUSH ONE (15:32)
[2021-01-09] MEDS ORDERED: Ketorolac 30 MG/ML SDV IVPUSH ONE (15:32)
[2021-01-09] MEDS ORDERED: Lactated Ringers 1,000 ML IV ONE (15:36)
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
[2021-01-09] MEDS ORDERED: Acetaminophen/oxyCODONE 325-5 MG Tab PO STA (16:00)
[2021-01-09 16:38] VITALS: BP 162/111; PULSE 82
--- NOTE | 2021-01-10 09:18 | US ---
Renal Comp CLINICAL HISTORY: Left flank pain. COMPARISON: CT 2019 TECHNIQUE: Multiple sonographic images were obtained through the kidneys in the sagittal and transverse projections. Right kidney measures 9.5 x 4.4 x 4.3 cm. The renal cortex measures 1.2 cm.. Left kidney measures 8.4 x 4.5 x 3.8 cm. Cortical thickness is 1.2 cm.. There is no mass, stones or hydronephrosis Scans of the bladder show no mass. No ureteral jets are identified IMPRESSION: Normal-appearing kidneys bilaterally Specifically, no evidence of hydronephrosis
== END 2021-01-09 17:02 | disposition home or self-care (01) ==
LOC: JP.ED 15:03
DX: N20.0 Calculus of kidney (principal); I48.91 Unspecified atrial fibrillation; I10 Essential (primary) hypertension; Z87.442 Personal history of urinary calculi; Z88.5 Allergy status to narcotic agent; Z88.8 Allergy status to other drugs, medicaments and biological substances; Z88.2 Allergy status to sulfonamides; Z79.899 Other long term (current) drug therapy
CPT/HCPCS: 76770; 81001; 96374; 96375; 99284; A9270; J1885; J2405; J7120

== ENCOUNTER 2021-02-08 17:31 | Emergency (ER) | payer BC ==
[2021-02-08 17:44] VITALS: PULSE 88
[2021-02-08 17:46] VITALS: BP 150/99
[2021-02-08] MEDS ORDERED: Ondansetron 4 MG Tab.DIS PO ONE (18:31)
[2021-02-08] MEDS ORDERED: Ketorolac 30 MG/ML SDV IM ONE (18:31)
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
== END 2021-02-08 19:39 | disposition home or self-care (01) ==
LOC: JP.ED 17:31
DX: R10.32 Left lower quadrant pain (principal); I10 Essential (primary) hypertension; M19.90 Unspecified osteoarthritis, unspecified site; Z88.2 Allergy status to sulfonamides; Z88.8 Allergy status to other drugs, medicaments and biological substances; Z79.899 Other long term (current) drug therapy; Z90.710 Acquired absence of both cervix and uterus
CPT/HCPCS: 36415; 80053; 81001; 81025; 85025; 86140; 96372; 99284; A9270; J1885

== ENCOUNTER 2021-02-09 12:53 | Emergency (ER) | payer BC ==
[2021-02-09 13:09] VITALS: BP 145/109; PULSE 90
[2021-02-09] MEDS ORDERED: Ketorolac 30 MG/ML SDV IVPUSH ONE (13:24)
[2021-02-09] MEDS ORDERED: Famotidine 20 MG/2 ML SDV IVPUSH ONE (13:24)
[2021-02-09] MEDS ORDERED: Sodium Chloride 0.9% 10 ML Syringe FLUSH PRN (13:24)
[2021-02-09] MEDS ORDERED: Ondansetron 4 MG/2 ML SDV IVPUSH ONE (13:24)
[2021-02-09] MEDS ORDERED: Sodium Chloride 0.9% 1,000 ML IV ONE (13:24)
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
--- NOTE | 2021-02-09 14:38 | US ---
Abdomen Ltd CLINICAL HISTORY: Left flank pain. COMPARISON: CT June 05, 2019 TECHNIQUE: Multiple sonographic images were obtained through the kidneys in the sagittal and transverse projections. Left kidney measures 7.3 x 3.9 x 4.0 cm. Cortical thickness is 1.0 cm. There are a few scattered punctate echogenic foci in the area of the renal. Metastases. There is no shadowing. This could represent arcuate artery artifact. Tiny renal stones are not excluded. There is no hydronephrosis. No perinephric fluid collection is seen IMPRESSION: There are a few scattered punctate foci within the kidney which may represent some arcuate artery artifact. Review of 2019 CT shows no renal calculi bilaterally. There is no hydronephrosis
== END 2021-02-09 15:20 | disposition home or self-care (01) ==
LOC: JP.ED 12:53
DX: R10.9 Unspecified abdominal pain (principal); E86.0 Dehydration; I10 Essential (primary) hypertension; M19.90 Unspecified osteoarthritis, unspecified site; Z87.442 Personal history of urinary calculi; Z88.2 Allergy status to sulfonamides; Z88.8 Allergy status to other drugs, medicaments and biological substances; Z90.710 Acquired absence of both cervix and uterus
CPT/HCPCS: 36415; 76705; 76705-26; 80048; 81001; 85025; 87086; 96374; 96375; 99283; 99284-25; J1885; J2405; J3490; J7030

== ENCOUNTER 2021-04-07 13:29 | Emergency (ER) | payer BC ==
[2021-04-07 13:57] VITALS: BP 168/114; PULSE 89
[2021-04-07] MEDS ORDERED: Lactated Ringers 1,000 ML IV ONE (14:12)
[2021-04-07] MEDS ORDERED: Ondansetron 4 MG/2 ML SDV IVPUSH ONE (14:15)
[2021-04-07] MEDS ORDERED: Ketorolac 30 MG/ML SDV IVPUSH ONE (14:15)
[2021-04-07] MEDS ORDERED: Acetaminophen/oxyCODONE 325-5 MG Tab PO STA (14:15)
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
--- NOTE | 2021-04-09 14:45 | US ---
Renal Ltd Bi CLINICAL HISTORY: Rule out hydronephrosis. COMPARISON: 02/09/2021. TECHNIQUE: Multiple sonographic images were obtained through the kidneys in the sagittal and transverse projections. Right kidney measures 9.6 x 4.9 x 4.3 cm. Cortical thickness is 1.2 cm. Left kidney measures 8.9 x 4.9 x 4.6 cm. Cortical thickness is 1.5 cm There is no mass, stones or hydronephrosis. Only a left ureteral jet is identified IMPRESSION: Essentially negative renal ultrasound
== END 2021-04-07 16:25 | disposition home or self-care (01) ==
LOC: JP.ED 13:29
DX: N20.1 Calculus of ureter (principal); J45.909 Unspecified asthma, uncomplicated; Z88.5 Allergy status to narcotic agent; Z88.2 Allergy status to sulfonamides; Z79.899 Other long term (current) drug therapy
CPT/HCPCS: 76775; 81001; 96374; 96375; 99284; A9270; J1885; J2405; J7120

== ENCOUNTER 2021-04-20 12:19 | Emergency (ER) | payer BC | END 2021-04-20 13:00 | disposition left against medical advice (07) | LOC: JP.ED 12:19 | DX: Z53.21 Procedure and treatment not carried out due to patient leaving prior to being seen by health care provider (principal) ==

== ENCOUNTER 2021-09-19 16:18 | Emergency (ER) | payer BC, MEDICAID ==
[2021-09-19 17:40] VITALS: BP 153/117; PULSE 93
[2021-09-19] MEDS ORDERED: Dental Adhesive 1 Tube DENT ONE (17:40)
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
== END 2021-09-19 17:49 | disposition home or self-care (01) ==
LOC: JP.ED 16:18
DX: K08.89 Other specified disorders of teeth and supporting structures (principal); I48.91 Unspecified atrial fibrillation; I10 Essential (primary) hypertension; J45.909 Unspecified asthma, uncomplicated; Z88.2 Allergy status to sulfonamides; Z88.5 Allergy status to narcotic agent
CPT/HCPCS: 99282

== ENCOUNTER 2021-10-26 23:33 | Emergency (ER) | payer MEDICAID ==
[2021-10-26] MEDS ORDERED: Sodium Chloride 0.9% 10 ML Syringe FLUSH PRN (23:50)
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
[2021-10-27] MEDS ORDERED: Metoprolol Tartrate 5 MG/5 ML SDV IVPUSH ONE (00:13)
[2021-10-27 00:21] VITALS: BP 116/81; PULSE 136
[2021-10-27] MEDS ORDERED: Propofol 200 MG/20 ML SDV ONE (00:21)
[2021-10-27] MEDS ORDERED: Aspirin 81 MG Tab.Chew PO ONE (00:36)
== END 2021-10-27 01:15 | disposition home or self-care (01) ==
LOC: JP.ED 23:33
DX: I48.91 Unspecified atrial fibrillation (principal); I10 Essential (primary) hypertension; Z88.2 Allergy status to sulfonamides; Z88.5 Allergy status to narcotic agent; Z79.899 Other long term (current) drug therapy; Z72.0 Tobacco use
CPT/HCPCS: 36415; 80048; 84443; 84484; 92960; 93005; 96374; 99285; A9270; J2704; J3490

== ENCOUNTER 2021-11-13 15:44 | Emergency (ER) | payer MEDICAID ==
[2021-11-13 16:24] VITALS: PULSE 82
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
[2021-11-13 16:42] VITALS: BP 159/114
== END 2021-11-13 16:43 | disposition home or self-care (01) ==
LOC: JP.ED 15:44
DX: K08.89 Other specified disorders of teeth and supporting structures (principal); I10 Essential (primary) hypertension; Z88.2 Allergy status to sulfonamides; Z88.8 Allergy status to other drugs, medicaments and biological substances; Z90.710 Acquired absence of both cervix and uterus; Z87.891 Personal history of nicotine dependence
CPT/HCPCS: 99282

== ENCOUNTER 2021-11-24 12:25 | Emergency (ER) | payer MEDICAID ==
[2021-11-24 13:46] VITALS: BP 150/104; PULSE 86
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
== END 2021-11-24 14:26 | disposition home or self-care (01) ==
LOC: JP.ED 12:25
DX: K08.89 Other specified disorders of teeth and supporting structures (principal); I48.91 Unspecified atrial fibrillation; I10 Essential (primary) hypertension; J45.909 Unspecified asthma, uncomplicated; Z88.5 Allergy status to narcotic agent; Z88.2 Allergy status to sulfonamides; Z79.899 Other long term (current) drug therapy
CPT/HCPCS: 99282; 99283

== ENCOUNTER 2021-11-30 11:15 | Emergency (ER) | payer OTHER, MEDICAID ==
[2021-11-30 11:45] VITALS: BP 149/115; PULSE 113
[2021-11-30] MEDS ORDERED: Ketorolac 30 MG/ML SDV IM ONE (12:03)
== END 2021-11-30 14:01 | disposition home or self-care (01) ==
LOC: JP.ED 11:15
DX: S22.42XA Multiple fractures of ribs, left side, initial encounter for closed fracture (principal); I48.91 Unspecified atrial fibrillation; I10 Essential (primary) hypertension; Z88.5 Allergy status to narcotic agent; Z88.2 Allergy status to sulfonamides; Z72.0 Tobacco use; V89.2XXA Person injured in unspecified motor-vehicle accident, traffic, initial encounter; Y92.410 Unspecified street and highway as the place of occurrence of the external cause
CPT/HCPCS: 71250; 96372; 99283; 99284; J1885

== ENCOUNTER 2021-12-05 19:11 | Emergency (ER) | payer OTHER, MEDICAID ==
[2021-12-05 19:33] VITALS: BP 160/111; PULSE 97
== END 2021-12-05 19:57 | disposition home or self-care (01) ==
LOC: JP.ED 19:11
DX: S22.42XA Multiple fractures of ribs, left side, initial encounter for closed fracture (principal); I10 Essential (primary) hypertension; I48.91 Unspecified atrial fibrillation; Z72.0 Tobacco use; Z88.2 Allergy status to sulfonamides; Z88.5 Allergy status to narcotic agent; Z88.8 Allergy status to other drugs, medicaments and biological substances; V89.2XXA Person injured in unspecified motor-vehicle accident, traffic, initial encounter; Y92.410 Unspecified street and highway as the place of occurrence of the external cause
CPT/HCPCS: 99283

== ENCOUNTER 2022-04-02 18:49 | Emergency (ER) | payer MEDICAID ==
[2022-04-02 20:23] VITALS: BP 160/107; PULSE 84
== END 2022-04-02 19:42 | disposition home or self-care (01) ==
LOC: JP.ED 18:49
DX: K02.9 Dental caries, unspecified (principal); I10 Essential (primary) hypertension; I48.91 Unspecified atrial fibrillation; Z88.5 Allergy status to narcotic agent; Z88.2 Allergy status to sulfonamides; Z88.8 Allergy status to other drugs, medicaments and biological substances
CPT/HCPCS: 99281; 99282

== ENCOUNTER 2022-04-09 17:55 | Emergency (ER) | payer MEDICAID ==
[2022-04-09 18:13] VITALS: PULSE 84
[2022-04-09] MEDS ORDERED: Lisinopril 10 MG Tab PO ONE (18:38)
[2022-04-09 19:02] VITALS: BP 151/104
== END 2022-04-09 19:05 | disposition home or self-care (01) ==
LOC: JP.ED 17:55
DX: K08.89 Other specified disorders of teeth and supporting structures (principal); K02.9 Dental caries, unspecified; I48.91 Unspecified atrial fibrillation; I10 Essential (primary) hypertension; Z90.710 Acquired absence of both cervix and uterus; Z79.899 Other long term (current) drug therapy; Z88.2 Allergy status to sulfonamides; Z88.5 Allergy status to narcotic agent; Z88.6 Allergy status to analgesic agent
CPT/HCPCS: 99281; 99282; A9270-GY

== ENCOUNTER 2022-04-13 16:58 | Emergency (ER) | payer MEDICAID ==
[2022-04-13 17:41] VITALS: BP 165/101; PULSE 84
== END 2022-04-13 18:20 | disposition home or self-care (01) ==
LOC: JP.ED 16:58
DX: R10.9 Unspecified abdominal pain (principal); I48.91 Unspecified atrial fibrillation; I10 Essential (primary) hypertension; Z90.710 Acquired absence of both cervix and uterus; Z79.899 Other long term (current) drug therapy; Z88.2 Allergy status to sulfonamides; Z88.5 Allergy status to narcotic agent
CPT/HCPCS: 81001; 99282; 99284-25

== ENCOUNTER 2022-04-14 10:45 | Emergency (ER) | payer MEDICAID ==
[2022-04-14 11:34] VITALS: BP 150/109; PULSE 74
[2022-04-14] MEDS ORDERED: cefTRIAXone 2 GM, Lidocaine 1% 4.2 ML IM ONE ×2 (12:00)
[2022-04-14] MEDS ORDERED: Acetaminophen/oxyCODONE 325-5 MG Tab PO PRN (12:01)
== END 2022-04-14 12:56 | disposition home or self-care (01) ==
LOC: JP.ED 10:45
DX: K02.9 Dental caries, unspecified (principal); I10 Essential (primary) hypertension; I48.91 Unspecified atrial fibrillation; F17.210 Nicotine dependence, cigarettes, uncomplicated; Z88.2 Allergy status to sulfonamides; Z88.5 Allergy status to narcotic agent; Z88.8 Allergy status to other drugs, medicaments and biological substances; Z79.899 Other long term (current) drug therapy
CPT/HCPCS: 96372; 99282; A9270; J0696

== ENCOUNTER 2022-06-08 16:57 | Emergency (ER) | payer MEDICAID ==
[2022-06-08] MEDS ORDERED: Ketorolac 30 MG/ML SDV IM ONE (18:14)
[2022-06-08 18:50] LABS: ESTIMATED GFR 79 mL/min (>60)
[2022-06-08] MEDS ORDERED: Ondansetron 4 MG Tab.DIS PO ONE (19:15)
[2022-06-08 21:15] VITALS: BP 135/86; PULSE 62
[2022-06-08] MEDS ORDERED: Diclofenac Sodium 75 MG Tab.EC PO ONE (21:20)
== END 2022-06-08 21:42 | disposition home or self-care (01) ==
LOC: JP.ED 16:57
DX: R10.13 Epigastric pain (principal); R10.11 Right upper quadrant pain; I48.91 Unspecified atrial fibrillation; I10 Essential (primary) hypertension; Z88.2 Allergy status to sulfonamides; Z88.5 Allergy status to narcotic agent; Z79.899 Other long term (current) drug therapy
CPT/HCPCS: 36415; 76705; 80053; 82150; 83690; 85025; 96372; 99284; J1885; Q0162; 99283

== ENCOUNTER 2022-09-25 15:06 | Emergency (ER) | payer MEDICAID ==
[2022-09-25 17:21] VITALS: BP 151/109; PULSE 67
== END 2022-09-25 18:52 | disposition home or self-care (01) ==
LOC: JP.ED 15:06
DX: K04.7 Periapical abscess without sinus (principal); K03.81 Cracked tooth; I48.91 Unspecified atrial fibrillation; I10 Essential (primary) hypertension; J45.909 Unspecified asthma, uncomplicated; M19.90 Unspecified osteoarthritis, unspecified site; Z88.5 Allergy status to narcotic agent; Z88.2 Allergy status to sulfonamides; Z79.899 Other long term (current) drug therapy
CPT/HCPCS: 99282

== ENCOUNTER 2022-10-07 19:33 | Emergency (ER) | payer MEDICAID ==
[2022-10-07 19:52] VITALS: BP 144/112; PULSE 84
== END 2022-10-07 20:20 | disposition home or self-care (01) ==
LOC: JP.ED 19:33
DX: G89.18 Other acute postprocedural pain (principal); Z88.8 Allergy status to other drugs, medicaments and biological substances; Z88.2 Allergy status to sulfonamides; Z88.5 Allergy status to narcotic agent; Z79.899 Other long term (current) drug therapy; Z90.710 Acquired absence of both cervix and uterus
CPT/HCPCS: 99282

== ENCOUNTER 2022-10-29 13:12 | Emergency (ER) | payer MEDICAID ==
[2022-10-29 14:48] VITALS: BP 109/78; PULSE 64
[2022-10-29 14:57] LABS: CORONAVIRUS COVID-19 NAA NEGATIVE (NEGATIVE)
== END 2022-10-29 15:05 | disposition home or self-care (01) ==
LOC: JP.ED 13:12
DX: N30.01 Acute cystitis with hematuria (principal); I10 Essential (primary) hypertension; Z88.2 Allergy status to sulfonamides; Z88.5 Allergy status to narcotic agent; Z88.8 Allergy status to other drugs, medicaments and biological substances; Z79.899 Other long term (current) drug therapy; Z90.710 Acquired absence of both cervix and uterus; Z87.891 Personal history of nicotine dependence; Z20.822 Contact with and (suspected) exposure to COVID-19
CPT/HCPCS: 0241U; 81001; 99284

== ENCOUNTER 2022-11-02 13:00 | Emergency (ER) | payer MEDICAID ==
[2022-11-02 13:42] VITALS: BP 119/73; PULSE 73
[2022-11-02 14:34] LABS: CORONAVIRUS COVID-19 NAA NEGATIVE (NEGATIVE)
== END 2022-11-02 15:05 | disposition home or self-care (01) ==
LOC: JP.ED 13:00
DX: J40 Bronchitis, not specified as acute or chronic (principal); I48.91 Unspecified atrial fibrillation; I10 Essential (primary) hypertension; Z88.5 Allergy status to narcotic agent; Z88.2 Allergy status to sulfonamides; Z79.899 Other long term (current) drug therapy; Z20.822 Contact with and (suspected) exposure to COVID-19
CPT/HCPCS: 0241U; 99283

== ENCOUNTER 2022-11-13 12:48 | Emergency (ER) | payer MEDICAID ==
[2022-11-13 13:00] VITALS: BP 139/96; PULSE 75
[2022-11-13] MEDS ORDERED: Sodium Chloride 0.9% 10 ML Syringe FLUSH PRN (13:35)
[2022-11-13] MEDS ORDERED: Ondansetron 4 MG/2 ML SDV IVPUSH ONE (13:36)
[2022-11-13] MEDS ORDERED: Sodium Chloride 0.9% 500 ML IV ONE (13:36)
[2022-11-13] MEDS ORDERED: HYDROmorphone 0.5 MG/0.5 ML Syringe IVPUSH ONE (13:57)
== END 2022-11-13 16:12 | disposition home or self-care (01) ==
LOC: JP.ED 12:48
DX: S39.011A Strain of muscle, fascia and tendon of abdomen, initial encounter (principal); I48.91 Unspecified atrial fibrillation; I10 Essential (primary) hypertension; Z86.16 Personal history of COVID-19; Z88.5 Allergy status to narcotic agent; Z88.2 Allergy status to sulfonamides; Z79.899 Other long term (current) drug therapy; Z87.442 Personal history of urinary calculi
CPT/HCPCS: 36415; 74176; 80048; 81001; 85025; 96374; 96375; 99284; J1170; J2405; J3490; J7040

== ENCOUNTER 2022-12-24 20:21 | Emergency (ER) | payer MEDICAID | END 2022-12-24 21:19 | disposition left against medical advice (07) | LOC: JP.ED 20:21 | DX: Z53.21 Procedure and treatment not carried out due to patient leaving prior to being seen by health care provider (principal) ==

== ENCOUNTER 2022-12-28 12:44 | Emergency (ER) | payer MEDICAID ==
[2022-12-28] MEDS ORDERED: Ketorolac 15 MG/ML SDV IVPUSH ONE (13:17)
[2022-12-28] MEDS ORDERED: Ondansetron 4 MG/2 ML SDV IVPUSH ONE (13:17)
[2022-12-28] MEDS ORDERED: Sodium Chloride 0.9% 1,000 ML IV SCH (13:30)
[2022-12-28 14:35] VITALS: BP 143/93; PULSE 60
== END 2022-12-28 14:57 | disposition home or self-care (01) ==
LOC: JP.ED 12:44
DX: R10.9 Unspecified abdominal pain (principal); I48.91 Unspecified atrial fibrillation; I10 Essential (primary) hypertension; J45.909 Unspecified asthma, uncomplicated; M19.90 Unspecified osteoarthritis, unspecified site; Z88.5 Allergy status to narcotic agent; Z88.2 Allergy status to sulfonamides; Z79.899 Other long term (current) drug therapy; Z87.891 Personal history of nicotine dependence
CPT/HCPCS: 74176; 81001; 96361; 96374; 96375; 99284; J1885; J2405; J7030

== ENCOUNTER 2023-01-21 17:01 | Emergency (ER) | payer MEDICAID ==
[2023-01-21 18:41] VITALS: BP 105/73; PULSE 72
== END 2023-01-21 19:38 | disposition home or self-care (01) ==
LOC: JP.ED 17:01
DX: R10.9 Unspecified abdominal pain (principal); M25.551 Pain in right hip; G89.29 Other chronic pain; I10 Essential (primary) hypertension; I48.91 Unspecified atrial fibrillation; Z88.2 Allergy status to sulfonamides; Z88.5 Allergy status to narcotic agent; Z79.899 Other long term (current) drug therapy; Z86.16 Personal history of COVID-19; Z90.710 Acquired absence of both cervix and uterus; Z87.891 Personal history of nicotine dependence
CPT/HCPCS: 74176; 99283; 99284

== ENCOUNTER 2023-04-14 06:59 | Emergency (ER) | payer MEDICAID ==
[2023-04-14] MEDS ORDERED: Ondansetron 4 MG Tab.DIS PO ONE (07:38)
[2023-04-14 07:43] LABS: APPEARANCE,URINE CLEAR (CLEAR); BILIRUBIN,URINE NEGATIVE (NEGATIVE); COLOR,URINE YELLOW (YELLOW); GLUCOSE,URINE NEGATIVE (NEGATIVE); KETONES,URINE NEGATIVE (NEGATIVE); LEUKOCYTE ESTERASE,URINE NEGATIVE (NEGATIVE); NITRITE,URINE NEGATIVE (NEGATIVE); OCCULT BLOOD,URINE NEGATIVE (NEGATIVE); PH,URINE 6.5 (5.0-8.0); PROTEIN,URINE NEGATIVE (NEGATIVE); UROBILINOGEN,URINE 0.2 EU/dL (0.2-1.0)
[2023-04-14 07:51] LABS: BACTERIA,URINE FEW; EPITHELIAL CELLS,URINE MODERATE; RBC,URINE 0-5 (0-5); WBC,URINE 0-5 (0-5)
[2023-04-14 07:52] LABS: AMORPHOUS SEDIMENT,URINE NOT SEEN; MUCUS,URINE NOT SEEN
[2023-04-14 08:20] VITALS: BP 119/91; PULSE 63
[2023-04-14 08:55] LABS: BASOPHILS ABSOLUTE AUTO 0.04 K/uL (0.00-0.10); BASOPHILS PERCENT AUTO 0.6 % (0.1-1.3); EOSINOPHILS ABSOLUTE AUTO 0.09 K/uL (0.00-0.40); EOSINOPHILS PERCENT AUTO 1.4 % (0.0-5.4); HEMATOCRIT 35.7 % (34.3-46.0); HEMOGLOBIN 11.8 g/dL (11.2-15.5); IMMATURE GRAN PERCENT AUTO 0.3 % (0.0-0.7); LYMPHOCYTES ABSOLUTE AUTO 1.98 K/uL (0.8-3.3); LYMPHOCYTES PERCENT AUTO 30.6 % (11.4-47.7); MEAN CORPUSCULAR HEMOGLOBIN 28.8 pg (31.6-35.5); MEAN CORPUSCULAR HGB CONC 33.1 g/dL (31.6-35.5); MEAN CORPUSCULAR VOLUME 87.1 fL (81.4-99.0); MONOCYTES ABSOLUTE AUTO 0.42 K/uL (0.20-0.90); MONOCYTES PERCENT AUTO 6.5 % (3.3-12.6); NEUTROPHILS ABSOLUTE AUTO 3.92 K/uL (1.0-7.6); NEUTROPHILS PERCENT AUTO 60.6 % (40.0-78.1); PLATELET COUNT,PLT 270 K/uL (130-375); WHITE BLOOD CELL COUNT,WBC 6.5 K/uL (3.2-11.0)
[2023-04-14 08:57] LABS: IMMATURE GRAN ABSOLUTE AUTO 0.02 K/uL (0.00-0.23)
[2023-04-14 09:16] LABS: A/G RATIO 1.1 (1.2-2.2); ALANINE AMINOTRANSFERASE,ALT 17 U/L (12-78); ALBUMIN 3.3 g/dL (3.4-5.0); ALKALINE PHOSPHATASE 62 U/L (46-116); ASPARTATE AMNIOTRANSFERASE,AST 15 U/L (15-37); BILIRUBIN TOTAL 0.3 mg/dL (0.2-1.0); BLOOD UREA NITROGEN,BUN 18 mg/dL (7-18); CALCIUM 8.5 mg/dL (8.5-10.1); CARBON DIOXIDE,CO2 26 mmol/L (21-32); CHLORIDE,CL 106 mmol/L (100-108); CREATININE 0.7 mg/dL (0.6-1.0); EST CRCL DRUG DOSING (CG) 84.45 mL/min; ESTIMATED GFR 107 mL/min (>60); GLUCOSE RANDOM 91 mg/dL (74-106); POTASSIUM,K 4.1 mmol/L (3.6-5.2); PROTEIN TOTAL,TP 6.2 g/dL (6.4-8.2); SODIUM,NA 138 mmol/L (140-148)
[2023-04-14 09:19] LABS: ANION GAP 10.1 mmol/L (5.0-14.0); C-REACTIVE PROTEIN < 0.05 mg/dL (0.0-0.3)
== END 2023-04-14 09:55 | disposition home or self-care (01) ==
LOC: JP.ED 06:59
DX: R10.9 Unspecified abdominal pain (principal); I48.91 Unspecified atrial fibrillation; I10 Essential (primary) hypertension; J45.909 Unspecified asthma, uncomplicated; Z86.16 Personal history of COVID-19; Z79.899 Other long term (current) drug therapy
CPT/HCPCS: 36415; 74176; 80053; 81001; 85025; 86140; 99284; Q0162

== ENCOUNTER 2023-04-27 13:05 | Emergency (ER) | payer MEDICAID ==
[2023-04-27 13:20] VITALS: BP 154/94; PULSE 85
== END 2023-04-27 13:40 | disposition home or self-care (01) ==
LOC: JP.ED 13:05
DX: K02.9 Dental caries, unspecified (principal); I48.91 Unspecified atrial fibrillation; I10 Essential (primary) hypertension; J45.909 Unspecified asthma, uncomplicated; Z88.5 Allergy status to narcotic agent; Z88.2 Allergy status to sulfonamides; Z86.16 Personal history of COVID-19
CPT/HCPCS: 99282

== ENCOUNTER 2023-05-15 18:09 | Emergency (ER) | payer MEDICAID ==
[2023-05-15 18:32] VITALS: BP 143/95; PULSE 72
== END 2023-05-15 18:49 | disposition home or self-care (01) ==
LOC: JP.ED 18:09
DX: M19.041 Primary osteoarthritis, right hand (principal); I48.91 Unspecified atrial fibrillation; I10 Essential (primary) hypertension; J45.909 Unspecified asthma, uncomplicated; Z86.16 Personal history of COVID-19; Z88.2 Allergy status to sulfonamides; Z88.5 Allergy status to narcotic agent; Z79.899 Other long term (current) drug therapy
CPT/HCPCS: 99283

== ENCOUNTER 2023-09-15 13:36 | Emergency (ER) | payer MEDICAID ==
[2023-09-15 13:41] VITALS: BP 165/101; PULSE 73
[2023-09-15 14:28] LABS: BASOPHILS ABSOLUTE AUTO 0.03 K/uL (0.00-0.10); BASOPHILS PERCENT AUTO 0.5 % (0.1-1.3); EOSINOPHILS ABSOLUTE AUTO 0.06 K/uL (0.00-0.40); EOSINOPHILS PERCENT AUTO 0.9 % (0.0-5.4); HEMATOCRIT 38.7 % (34.3-46.0); HEMOGLOBIN 13.1 g/dL (11.2-15.5); IMMATURE GRAN PERCENT AUTO 0.3 % (0.0-0.7); LYMPHOCYTES PERCENT AUTO 34.8 % (11.4-47.7); MEAN CORPUSCULAR HEMOGLOBIN 29.4 pg (31.6-35.5); MEAN CORPUSCULAR HGB CONC 33.9 g/dL (31.6-35.5); MEAN CORPUSCULAR VOLUME 86.8 fL (81.4-99.0); MONOCYTES ABSOLUTE AUTO 0.31 K/uL (0.20-0.90); MONOCYTES PERCENT AUTO 4.9 % (3.3-12.6); NEUTROPHILS ABSOLUTE AUTO 3.71 K/uL (1.0-7.6); NEUTROPHILS PERCENT AUTO 58.6 % (40.0-78.1); PLATELET COUNT,PLT 329 K/uL (130-375); RED BLOOD CELL COUNT 4.46 M/uL (3.77-5.24); WHITE BLOOD CELL COUNT,WBC 6.3 K/uL (3.2-11.0)
[2023-09-15 14:29] LABS: IMMATURE GRAN ABSOLUTE AUTO 0.02 K/uL (0.00-0.23)
[2023-09-15 14:56] LABS: ANION GAP 11.9 mmol/L (5.0-14.0); CALCIUM 9.4 mg/dL (8.5-10.1); CREATININE 0.9 mg/dL (0.6-1.0); EST CRCL DRUG DOSING (CG) 65.69 mL/min; POTASSIUM,K 4.3 mmol/L (3.6-5.2); T4 FREE 0.73 ng/dL (0.76-1.46); TSH ULTRASENSITIVE 2.25 uIU/mL (0.358-3.740)
== END 2023-09-15 15:27 | disposition home or self-care (01) ==
LOC: JP.ED 13:36
DX: I10 Essential (primary) hypertension (principal); I48.91 Unspecified atrial fibrillation; Z86.16 Personal history of COVID-19; Z88.8 Allergy status to other drugs, medicaments and biological substances; Z88.5 Allergy status to narcotic agent; Z88.2 Allergy status to sulfonamides; Z79.899 Other long term (current) drug therapy
CPT/HCPCS: 36415; 80048; 83735; 84439; 84443; 84484; 85025; 93005; 99285

== ENCOUNTER 2023-09-16 22:19 | Emergency (ER) | payer MEDICAID ==
[2023-09-16 22:26] VITALS: BP 142/96; PULSE 100
[2023-09-16 22:41] LABS: BASOPHILS ABSOLUTE AUTO 0.05 K/uL (0.00-0.10); BASOPHILS PERCENT AUTO 0.6 % (0.1-1.3); EOSINOPHILS ABSOLUTE AUTO 0.09 K/uL (0.00-0.40); EOSINOPHILS PERCENT AUTO 1.1 % (0.0-5.4); HEMOGLOBIN 12.1 g/dL (11.2-15.5); IMMATURE GRAN PERCENT AUTO 0.3 % (0.0-0.7); LYMPHOCYTES ABSOLUTE AUTO 3.42 K/uL (0.8-3.3); LYMPHOCYTES PERCENT AUTO 43.2 % (11.4-47.7); MEAN CORPUSCULAR HEMOGLOBIN 29.2 pg (31.6-35.5); MEAN CORPUSCULAR HGB CONC 33.6 g/dL (31.6-35.5); MEAN CORPUSCULAR VOLUME 86.7 fL (81.4-99.0); MONOCYTES ABSOLUTE AUTO 0.41 K/uL (0.20-0.90); MONOCYTES PERCENT AUTO 5.2 % (3.3-12.6); NEUTROPHILS ABSOLUTE AUTO 3.92 K/uL (1.0-7.6); NEUTROPHILS PERCENT AUTO 49.6 % (40.0-78.1); PLATELET COUNT,PLT 330 K/uL (130-375); RED BLOOD CELL COUNT 4.15 M/uL (3.77-5.24); WHITE BLOOD CELL COUNT,WBC 7.9 K/uL (3.2-11.0)
[2023-09-16 22:46] LABS: IMMATURE GRAN ABSOLUTE AUTO 0.02 K/uL (0.00-0.23)
[2023-09-16 23:09] LABS: BLOOD UREA NITROGEN,BUN 22 mg/dL (7-18); CALCIUM 9.1 mg/dL (8.5-10.1); CARBON DIOXIDE,CO2 23 mmol/L (21-32); CHLORIDE,CL 105 mmol/L (100-108); CREATININE 1.3 mg/dL (0.6-1.0); EST CRCL DRUG DOSING (CG) 45.48 mL/min; ESTIMATED GFR 51 mL/min (>60); GLUCOSE RANDOM 92 mg/dL (74-106); SODIUM,NA 139 mmol/L (140-148)
[2023-09-16 23:10] LABS: TROPONIN I HIGH SENSITIVITY < 4.0 pg/mL (<=60.3)
== END 2023-09-16 23:39 | disposition home or self-care (01) ==
LOC: JP.ED 22:19
DX: I48.0 Paroxysmal atrial fibrillation (principal); I10 Essential (primary) hypertension; F17.210 Nicotine dependence, cigarettes, uncomplicated; Z86.16 Personal history of COVID-19; Z88.5 Allergy status to narcotic agent; Z88.2 Allergy status to sulfonamides; Z88.8 Allergy status to other drugs, medicaments and biological substances; Z79.899 Other long term (current) drug therapy
CPT/HCPCS: 36415; 80048; 84484; 85025; 93005; 99285

== ENCOUNTER 2023-11-07 14:32 | Emergency (ER) | payer MEDICAID ==
[2023-11-07 14:53] VITALS: BP 147/98; PULSE 98
== END 2023-11-07 17:31 | disposition home or self-care (01) ==
LOC: JP.ED 14:32
DX: S60.211A Contusion of right wrist, initial encounter (principal); I10 Essential (primary) hypertension; Z86.16 Personal history of COVID-19; Z90.710 Acquired absence of both cervix and uterus; Z79.899 Other long term (current) drug therapy; Z88.5 Allergy status to narcotic agent; Z88.8 Allergy status to other drugs, medicaments and biological substances; Z88.2 Allergy status to sulfonamides; W00.0XXA Fall on same level due to ice and snow, initial encounter
CPT/HCPCS: 73090-26-RT; 73090-RT; 73110-26-RT; 73110-RT; 99283

== ENCOUNTER 2023-11-28 13:33 | Emergency (ER) | payer MEDICAID ==
[2023-11-28 13:50] VITALS: BP 137/83; PULSE 81
== END 2023-11-28 14:59 | disposition home or self-care (01) ==
LOC: JP.ED 13:33
DX: M19.041 Primary osteoarthritis, right hand (principal); J45.909 Unspecified asthma, uncomplicated; Z86.16 Personal history of COVID-19; Z88.2 Allergy status to sulfonamides
CPT/HCPCS: 99283

== ENCOUNTER 2024-01-25 11:07 | Emergency (ER) | payer MEDICAID ==
[2024-01-25 11:24] VITALS: BP 135/82; PULSE 78
[2024-01-25 11:59] LABS: BASOPHILS PERCENT AUTO 0.2 % (0.1-1.3); EOSINOPHILS ABSOLUTE AUTO 0.04 K/uL (0.00-0.40); EOSINOPHILS PERCENT AUTO 0.4 % (0.0-5.4); HEMOGLOBIN 12.2 g/dL (11.2-15.5); IMMATURE GRAN ABSOLUTE AUTO 0.03 K/uL (0.00-0.23); IMMATURE GRAN PERCENT AUTO 0.3 % (0.0-0.7); LYMPHOCYTES ABSOLUTE AUTO 1.09 K/uL (0.8-3.3); LYMPHOCYTES PERCENT AUTO 11.3 % (11.4-47.7); MEAN CORPUSCULAR HGB CONC 33.9 g/dL (31.6-35.5); MEAN CORPUSCULAR VOLUME 85.5 fL (81.4-99.0); MONOCYTES ABSOLUTE AUTO 0.54 K/uL (0.20-0.90); MONOCYTES PERCENT AUTO 5.6 % (3.3-12.6); NEUTROPHILS ABSOLUTE AUTO 7.94 K/uL (1.0-7.6); NEUTROPHILS PERCENT AUTO 82.2 % (40.0-78.1); PLATELET COUNT,PLT 273 K/uL (130-375); RED BLOOD CELL COUNT 4.21 M/uL (3.77-5.24); WHITE BLOOD CELL COUNT,WBC 9.7 K/uL (3.2-11.0)
[2024-01-25 12:01] LABS: BASOPHILS ABSOLUTE AUTO 0.02 K/uL (0.00-0.10)
[2024-01-25 12:10] LABS: INR 0.9; PROTHROMBIN TIME 9.5 sec (9.2-10.6)
[2024-01-25 12:14] LABS: A/G RATIO 1.3 (1.2-2.2); ALANINE AMINOTRANSFERASE,ALT 21 U/L (12-78); ALBUMIN 3.5 g/dL (3.4-5.0); ALKALINE PHOSPHATASE 56 U/L (46-116); ASPARTATE AMNIOTRANSFERASE,AST 19 U/L (15-37); BILIRUBIN TOTAL 0.4 mg/dL (0.2-1.0); BLOOD UREA NITROGEN,BUN 20 mg/dL (7-18); CALCIUM 8.8 mg/dL (8.5-10.1); CARBON DIOXIDE,CO2 24 mmol/L (21-32); CHLORIDE,CL 105 mmol/L (100-108); CREATININE 0.8 mg/dL (0.6-1.0); EST CRCL DRUG DOSING (CG) 74.26 mL/min; ESTIMATED GFR 91 mL/min (>60); GLUCOSE RANDOM 102 mg/dL (74-106); POTASSIUM,K 4.1 mmol/L (3.6-5.2); PROTEIN TOTAL,TP 6.1 g/dL (6.4-8.2); SODIUM,NA 139 mmol/L (140-148)
[2024-01-25 12:15] LABS: ANION GAP 14.1 mmol/L (5.0-14.0)
== END 2024-01-25 13:00 | disposition home or self-care (01) ==
LOC: JP.ED 11:07
DX: R11.2 Nausea with vomiting, unspecified (principal); R19.7 Diarrhea, unspecified; R10.30 Lower abdominal pain, unspecified; I10 Essential (primary) hypertension; J45.909 Unspecified asthma, uncomplicated; Z88.2 Allergy status to sulfonamides; Z88.8 Allergy status to other drugs, medicaments and biological substances; Z90.710 Acquired absence of both cervix and uterus; Z79.899 Other long term (current) drug therapy
CPT/HCPCS: 36415; 80053; 82150; 82270; 83690; 85025; 85610; 99283; 99284

== ENCOUNTER 2024-05-07 17:04 | Emergency (ER) | payer MEDICAID ==
[2024-05-07 17:37] VITALS: BP 154/111; PULSE 57
== END 2024-05-07 18:31 | disposition home or self-care (01) ==
LOC: JP.ED 17:04
DX: S63.102A Unspecified subluxation of left thumb, initial encounter (principal); I10 Essential (primary) hypertension; I48.91 Unspecified atrial fibrillation; Z79.899 Other long term (current) drug therapy; Z88.6 Allergy status to analgesic agent; Z88.2 Allergy status to sulfonamides; Z88.8 Allergy status to other drugs, medicaments and biological substances; X58.XXXA Exposure to other specified factors, initial encounter
CPT/HCPCS: 29125; 73140-26-FA; 73140-FA; 99283; 99283-25

== ENCOUNTER 2024-05-10 15:26 | Emergency (ER) | payer MEDICAID ==
[2024-05-10 15:44] VITALS: BP 121/89; PULSE 100
[2024-05-10] MEDS: fentaNYL 100 MCG/2 ML SDV IM ONE (16:52)
== END 2024-05-10 18:19 | disposition home or self-care (01) ==
LOC: JP.ED 15:26
DX: S52.122A Displaced fracture of head of left radius, initial encounter for closed fracture (principal); I10 Essential (primary) hypertension; J45.909 Unspecified asthma, uncomplicated; F17.210 Nicotine dependence, cigarettes, uncomplicated; Z88.2 Allergy status to sulfonamides; Z88.8 Allergy status to other drugs, medicaments and biological substances; Z79.899 Other long term (current) drug therapy; Z90.710 Acquired absence of both cervix and uterus; V18.0XXA Pedal cycle driver injured in noncollision transport accident in nontraffic accident, initial encounter
CPT/HCPCS: 29125; 73110; 96372; 99283; 99284; J3010

== ENCOUNTER 2024-06-20 11:11 | Emergency (ER) | payer MEDICAID ==
[2024-06-20 11:28] VITALS: BP 139/89; PULSE 75
== END 2024-06-20 12:05 | disposition home or self-care (01) ==
LOC: JP.ED 11:11
DX: M25.532 Pain in left wrist (principal); I10 Essential (primary) hypertension; F17.210 Nicotine dependence, cigarettes, uncomplicated; Z90.710 Acquired absence of both cervix and uterus; Z79.899 Other long term (current) drug therapy; Z88.2 Allergy status to sulfonamides; Z88.5 Allergy status to narcotic agent; Z88.8 Allergy status to other drugs, medicaments and biological substances
CPT/HCPCS: 99283

== ENCOUNTER 2024-06-27 16:20 | Emergency (ER) | payer MEDICAID ==
[2024-06-27 17:01] VITALS: BP 148/95; PULSE 78
== END 2024-06-27 17:38 | disposition home or self-care (01) ==
LOC: JP.ED 16:20
DX: M25.532 Pain in left wrist (principal); I10 Essential (primary) hypertension; I48.91 Unspecified atrial fibrillation; Z90.710 Acquired absence of both cervix and uterus; Z88.2 Allergy status to sulfonamides; Z88.6 Allergy status to analgesic agent; Z88.8 Allergy status to other drugs, medicaments and biological substances; Z79.899 Other long term (current) drug therapy; W10.9XXA Fall (on) (from) unspecified stairs and steps, initial encounter
CPT/HCPCS: 73110-26-LT; 73110-LT; 99283

== ENCOUNTER 2024-07-24 13:00 | Emergency (ER) | payer MEDICAID ==
[2024-07-24 13:08] VITALS: BP 142/97; PULSE 74
[2024-07-24] MEDS: Lactated Ringers 1,000 ML IV SCH (14:27)
[2024-07-24] MEDS: droPERidol 5 MG/2 ML SDV IVPUSH ONE (14:28)
[2024-07-24 14:30] LABS: BASOPHILS ABSOLUTE AUTO 0.05 K/uL (0.00-0.10); BASOPHILS PERCENT AUTO 0.6 % (0.1-1.3); EOSINOPHILS ABSOLUTE AUTO 0.14 K/uL (0.00-0.40); EOSINOPHILS PERCENT AUTO 1.8 % (0.0-5.4); HEMATOCRIT 35.7 % (34.3-46.0); HEMOGLOBIN 12.3 g/dL (11.2-15.5); IMMATURE GRAN PERCENT AUTO 0.3 % (0.0-0.7); LYMPHOCYTES ABSOLUTE AUTO 1.79 K/uL (0.8-3.3); LYMPHOCYTES PERCENT AUTO 23.1 % (11.4-47.7); MEAN CORPUSCULAR HEMOGLOBIN 29.6 pg (31.6-35.5); MEAN CORPUSCULAR HGB CONC 34.5 g/dL (31.6-35.5); MEAN CORPUSCULAR VOLUME 85.8 fL (81.4-99.0); MONOCYTES ABSOLUTE AUTO 0.32 K/uL (0.20-0.90); MONOCYTES PERCENT AUTO 4.1 % (3.3-12.6); NEUTROPHILS ABSOLUTE AUTO 5.44 K/uL (1.0-7.6); NEUTROPHILS PERCENT AUTO 70.1 % (40.0-78.1); PLATELET COUNT,PLT 283 K/uL (130-375); RED BLOOD CELL COUNT 4.16 M/uL (3.77-5.24); WHITE BLOOD CELL COUNT,WBC 7.8 K/uL (3.2-11.0)
[2024-07-24] MEDS: Sodium Chloride 0.9% 10 ML Syringe FLUSH PRN (14:30)
[2024-07-24 14:32] LABS: IMMATURE GRAN ABSOLUTE AUTO 0.02 K/uL (0.00-0.23)
[2024-07-24 14:46] LABS: ANION GAP 9.9 mmol/L (5.0-14.0); CALCIUM 9.6 mg/dL (8.5-10.1); CREATININE 0.7 mg/dL (0.6-1.0); EST CRCL DRUG DOSING (CG) 83.95 mL/min; POTASSIUM,K 4.2 mmol/L (3.6-5.2)
== END 2024-07-24 15:34 | disposition home or self-care (01) ==
LOC: JP.ED 13:00
DX: K52.9 Noninfective gastroenteritis and colitis, unspecified (principal); Z88.2 Allergy status to sulfonamides; Z88.8 Allergy status to other drugs, medicaments and biological substances; Z79.899 Other long term (current) drug therapy; Z90.710 Acquired absence of both cervix and uterus; Z87.891 Personal history of nicotine dependence
CPT/HCPCS: 36415; 80048; 83605; 85025; 96361; 96374; 99284; J1790; J3490; J7120

== ENCOUNTER 2024-08-09 12:30 | Emergency (ER) | payer MEDICAID ==
[2024-08-09 13:14] VITALS: BP 137/96; PULSE 70
== END 2024-08-09 15:56 | disposition home or self-care (01) ==
LOC: JP.ED 12:30
DX: S60.022A Contusion of left index finger without damage to nail, initial encounter (principal); I10 Essential (primary) hypertension; J45.909 Unspecified asthma, uncomplicated; Z90.710 Acquired absence of both cervix and uterus; Z79.899 Other long term (current) drug therapy; Z88.2 Allergy status to sulfonamides; Z88.5 Allergy status to narcotic agent; Z88.8 Allergy status to other drugs, medicaments and biological substances; W22.8XXA Striking against or struck by other objects, initial encounter
CPT/HCPCS: 73130-26-LT; 73130-LT; 99283

== ENCOUNTER 2025-02-04 18:52 | Emergency (ER) | payer MEDICAID ==
[2025-02-04 19:03] VITALS: BP 151/99; PULSE 67
== END 2025-02-04 20:45 | disposition home or self-care (01) ==
LOC: JP.ED 18:52
DX: H65.91 Unspecified nonsuppurative otitis media, right ear (principal); I10 Essential (primary) hypertension; I48.91 Unspecified atrial fibrillation; J45.909 Unspecified asthma, uncomplicated; Z90.710 Acquired absence of both cervix and uterus; Z88.2 Allergy status to sulfonamides; Z88.5 Allergy status to narcotic agent; Z88.8 Allergy status to other drugs, medicaments and biological substances; Z79.899 Other long term (current) drug therapy
CPT/HCPCS: 99283

== ENCOUNTER 2025-07-16 14:30 | Emergency (ER) | payer MEDICAID ==
[2025-07-16 14:41] VITALS: PULSE 65
[2025-07-16 16:23] VITALS: BP 116/78
== END 2025-07-16 17:03 | disposition home or self-care (01) ==
LOC: JP.ED 14:30
DX: S93.492A Sprain of other ligament of left ankle, initial encounter (principal); I10 Essential (primary) hypertension; J45.909 Unspecified asthma, uncomplicated; Z90.710 Acquired absence of both cervix and uterus; Z88.2 Allergy status to sulfonamides; Z88.5 Allergy status to narcotic agent; Z88.8 Allergy status to other drugs, medicaments and biological substances; Z79.899 Other long term (current) drug therapy; W10.9XXA Fall (on) (from) unspecified stairs and steps, initial encounter
CPT/HCPCS: 73600-26-LT; 73600-LT; 99283